=== PATIENT | male | born 1950 | race Caucasian/White ===

== ENCOUNTER 2018-02-07 17:47 | Emergency (ER) | payer MEDICAID, MEDICARE | END 2018-02-07 20:08 | disposition home or self-care (01) | LOC: FTE 17:47 | DX: M79.675 Pain in left toe(s) (principal); E11.9 Type 2 diabetes mellitus without complications; I10 Essential (primary) hypertension | CPT/HCPCS: 73660; 99283-25 ==

== ENCOUNTER 2018-05-07 19:54 | Inpatient (IN) | payer MEDICAID, MEDICARE ==
[2018-05-07 22:45] LABS: ADD MAN DIFF? NO
[2018-05-07 22:46] LABS: ABNORMAL IP MESSAGE 1; BASOPHILS % 0.2 % (0.0-2.0); EOSINOPHILS # 0.1 10^3/ul (0.0-0.5); EOSINOPHILS % 0.2 % (0.0-7.0); HEMATOCRIT 42.4 % (42.0-52.0); HEMOGLOBIN 14.9 g/dl (14.0-18.0); LYMPHOCYTES # 1.7 10^3/ul (0.8-2.9); LYMPHOCYTES % 6.7 % (15.0-51.0); MEAN CORPUSCULAR HEMOGLOBIN 32.5 pg (29.0-33.0); MEAN CORPUSCULAR HGB CONC 35.1 g/dl (32.0-37.0); MEAN CORPUSCULAR VOLUME 92.4 fl (82.0-101.0); MEAN PLATELET VOLUME 9.9 fl (7.4-10.4); MONOCYTE # 1.9 10^3/ul (0.3-0.9); MONOCYTES % 7.5 % (0.0-11.0); NEUTROPHIL # 21.1 10^3/ul (1.6-7.5); NEUTROPHILS % 84.5 % (39.0-77.0); PLATELET COUNT 284 10^3/UL (140-415); POSITIVE DIFF @See below; RED BLOOD COUNT 4.59 10^6/ul (4.70-6.10); RED CELL DISTRIBUTION WIDTH 13.2 % (11.5-14.5)
[2018-05-07 22:53] LABS: ALANINE AMINOTRANSFERASE 16 IU/L (13-69); ALBUMIN 4.2 g/dl (3.3-4.9); ALBUMIN/GLOBULIN RATIO 1.23; ALKALINE PHOSPHATASE 132 IU/L (42-121); ANION GAP 17 (8-16); ASPARTATE AMINO TRANSFERASE 15 IU/L (15-46); BILIRUBIN,INDIRECT 0.9 mg/dl (0-1.1); BILIRUBIN,TOTAL 0.9 mg/dl (0.2-1.3); BLOOD UREA NITROGEN 33 mg/dl (7-20); CALCIUM 10.1 mg/dl (8.4-10.2); CARBON DIOXIDE 27 mmol/L (21-31); CHLORIDE 95 mmol/L (97-110); CREATININE 1.11 mg/dl (0.61-1.24); GLUCOSE 162 mg/dl (70-220); POTASSIUM 4.7 mmol/L (3.5-5.1); SODIUM 134 mmol/L (135-144); TOTAL PROTEIN 7.6 g/dl (6.1-8.1)
[2018-05-07 22:55] LABS: INR 0.94; PROTIME 12.7 Sec (11.9-14.9)
[2018-05-07 22:56] LABS: PARTIAL THROMBOPLASTIN TIME 30.3 Sec (25.0-35.0)
[2018-05-07 23:04] LABS: TROPONIN-I < 0.010 ng/ml (0.000-0.120)
[2018-05-07 23:23] LABS: AMMONIA < 9 umol/l (9-30); LACTIC ACID 2.5 mmol/L (0.5-2.0)
[2018-05-07 23:33] LABS: URINE BLOOD (Dip) POC Negative (NEGATIVE); URINE GLUCOSE (Dip) POC Negative (NEGATIVE); URINE KETONES (Dip) POC 1+ (NEGATIVE); URINE LEUKOCYTE EST (Dip) POC 3+ (NEGATIVE); URINE NITRITE (Dip) POC Negative (NEGATIVE); URINE TOTAL PROTEIN POC 1+ (NEGATIVE)
[2018-05-07 23:33] LABS: URINE PH (Dip) POC 5.5 (5.0-8.5)
[2018-05-07] MEDS: PIPER-TAZO 3.375 GM IV (PMX) 100 ML IVPB (23:50)
[2018-05-07] MEDS: SODIUM CHLORIDE 0.9% 1L BAG IV* (23:53)
[2018-05-08] MEDS ORDERED: GLUCAGON 1 MG INJ IM (05:30)
[2018-05-08] MEDS ORDERED: DEXTROSE 50% 50 ML SYRINGE IV ×2 (05:30)
[2018-05-08] MEDS ORDERED: GLUCOSE GEL 15 GRAM TUBE BUCCAL (05:30)
[2018-05-08] MEDS ORDERED: GLUCOSE GEL 15 GRAM TUBE PO ×2 (05:30)
[2018-05-08 05:54] LABS: ADD MAN DIFF? NO
[2018-05-08 05:56] LABS: WHITE BLOOD COUNT 18.7 10^3/ul (4.8-10.8)
[2018-05-08 05:56] LABS: BASOPHILS % 0.2 % (0.0-2.0); EOSINOPHILS # 0.1 10^3/ul (0.0-0.5); EOSINOPHILS % 0.5 % (0.0-7.0); HEMATOCRIT 38.7 % (42.0-52.0); HEMOGLOBIN 13.6 g/dl (14.0-18.0); LYMPHOCYTES # 2.7 10^3/ul (0.8-2.9); LYMPHOCYTES % 14.2 % (15.0-51.0); MEAN CORPUSCULAR HEMOGLOBIN 32.1 pg (29.0-33.0); MEAN CORPUSCULAR HGB CONC 35.1 g/dl (32.0-37.0); MEAN CORPUSCULAR VOLUME 91.3 fl (82.0-101.0); MEAN PLATELET VOLUME 9.5 fl (7.4-10.4); MONOCYTE # 1.4 10^3/ul (0.3-0.9); MONOCYTES % 7.6 % (0.0-11.0); NEUTROPHIL # 14.4 10^3/ul (1.6-7.5); NEUTROPHILS % 76.8 % (39.0-77.0); PLATELET COUNT 231 10^3/UL (140-415); RED BLOOD COUNT 4.24 10^6/ul (4.70-6.10); RED CELL DISTRIBUTION WIDTH 13.2 % (11.5-14.5)
[2018-05-08 06:22] LABS: LACTIC ACID 0.7 mmol/L (0.5-2.0)
[2018-05-08 06:35] LABS: ANION GAP 12 (8-16); BLOOD UREA NITROGEN 24 mg/dl (7-20); CALCIUM 9.3 mg/dl (8.4-10.2); CARBON DIOXIDE 27 mmol/L (21-31); CHLORIDE 101 mmol/L (97-110); CREATININE 0.77 mg/dl (0.61-1.24); GLUCOSE 113 mg/dl (70-220); MAGNESIUM 1.5 mg/dl (1.7-2.5); PHOSPHORUS 3.3 mg/dl (2.5-4.9); POTASSIUM 3.5 mmol/L (3.5-5.1); SODIUM 136 mmol/L (135-144)
[2018-05-08 07:28] LABS: HEMOGLOBIN A1C 6.2 % (0-5.9)
[2018-05-08] MEDS: INSULIN ASPART [NOVOLOG] 3 ML PEN SC ×4 (07:56→21:00)
[2018-05-08] MEDS: CLOPIDOGREL 75 MG TAB PO (08:11)
[2018-05-08] MEDS: LEVETIRACETAM (100 MG/ML) 5ML CUP PO ×2 (08:11→21:06)
[2018-05-08] MEDS: CEFTRIAXONE 1 GM/50 ML (PMX) 50 ML IVPB (08:11)
[2018-05-08] MEDS ORDERED: NON-FORMULARY/PATIENT OWN MED (Clopidogrel Bisulfate* 75 MG) PO (09:00)
[2018-05-08] MEDS ORDERED: METFORMIN HCL PO (09:00)
[2018-05-08] MEDS ORDERED: [UNRECOGNIZED DRUG - OTHER] PO (09:00)
[2018-05-08] MEDS ORDERED: LINAGLIPTIN PO (09:00)
[2018-05-08] MEDS: LABETALOL 200 MG TAB PO ×2 (10:06→21:06)
[2018-05-08] MEDS: ACCU-CHEK XX ×3 (10:07→20:00)
[2018-05-08] MEDS: MAGNESIUM SULFATE 2 GM/50 ML 50 ML IVPB (18:07)
[2018-05-08] MEDS: TAMSULOSIN (SR) 0.4 MG CAP PO (21:06)
[2018-05-08] MEDS: ATORVASTATIN 80 MG TAB PO (21:06)
[2018-05-09] MEDS: ACCU-CHEK XX ×4 (02:00→20:00)
[2018-05-09] MEDS: INSULIN ASPART [NOVOLOG] 3 ML PEN SC ×4 (07:44→20:05)
[2018-05-09] MEDS: metFORMIN 500 MG TAB PO ×2 (08:29→17:27)
[2018-05-09] MEDS: CLOPIDOGREL 75 MG TAB PO (08:30)
[2018-05-09] MEDS: LEVETIRACETAM (100 MG/ML) 5ML CUP PO ×2 (08:30→19:59)
[2018-05-09] MEDS: LABETALOL 200 MG TAB PO ×2 (08:32→20:00)
[2018-05-09] MEDS: CEFTRIAXONE 1 GM/50 ML (PMX) 50 ML IVPB (08:32)
[2018-05-09] MEDS ORDERED: hydrALAzine 20 MG INJ IV (12:30)
[2018-05-09] MEDS: AMLODIPINE 5 MG TAB PO ×2 (12:35→20:00)
[2018-05-09] MEDS: ATORVASTATIN 80 MG TAB PO (19:59)
[2018-05-09] MEDS: TAMSULOSIN (SR) 0.4 MG CAP PO (20:00)
[2018-05-10] MEDS: ACCU-CHEK XX (02:00)
[2018-05-10] MEDS: INSULIN ASPART [NOVOLOG] 3 ML PEN SC ×4 (08:00→21:00)
[2018-05-10] MEDS: AMLODIPINE 5 MG TAB PO ×2 (08:22→21:36)
[2018-05-10] MEDS: metFORMIN 500 MG TAB PO ×2 (08:22→17:29)
[2018-05-10] MEDS: CLOPIDOGREL 75 MG TAB PO (08:22)
[2018-05-10] MEDS: CEFTRIAXONE 1 GM/50 ML (PMX) 50 ML IVPB (12:25)
[2018-05-10] MEDS: LEVETIRACETAM (100 MG/ML) 5ML CUP PO ×2 (12:26→21:37)
[2018-05-10] MEDS: LABETALOL 200 MG TAB PO ×2 (12:26→21:37)
[2018-05-10] MEDS: QUETIAPINE 25 MG TAB PO ×2 (12:26→21:36)
[2018-05-10 18:13] LABS: MAGNESIUM 1.6 mg/dl (1.7-2.5)
[2018-05-10] MEDS: ATORVASTATIN 80 MG TAB PO (21:36)
[2018-05-10] MEDS: TAMSULOSIN (SR) 0.4 MG CAP PO (21:37)
[2018-05-10] MEDS: MAGNESIUM SULFATE 2 GM/50 ML 50 ML IVPB (23:42)
[2018-05-11] MEDS: ACCU-CHEK XX (01:58)
[2018-05-11 07:36] LABS: ADD MAN DIFF? NO
[2018-05-11 07:38] LABS: BASOPHILS % 0.4 % (0.0-2.0); EOSINOPHILS # 0.2 10^3/ul (0.0-0.5); EOSINOPHILS % 2.2 % (0.0-7.0); HEMATOCRIT 40.3 % (42.0-52.0); LYMPHOCYTES # 2.6 10^3/ul (0.8-2.9); LYMPHOCYTES % 32.6 % (15.0-51.0); MEAN CORPUSCULAR HGB CONC 34.7 g/dl (32.0-37.0); MEAN PLATELET VOLUME 9.5 fl (7.4-10.4); MONOCYTES % 12.7 % (0.0-11.0); NEUTROPHIL # 4.2 10^3/ul (1.6-7.5); NEUTROPHILS % 51.7 % (39.0-77.0); PLATELET COUNT 305 10^3/UL (140-415); RED BLOOD COUNT 4.38 10^6/ul (4.70-6.10); RED CELL DISTRIBUTION WIDTH 13.1 % (11.5-14.5)
[2018-05-11] MEDS: INSULIN ASPART [NOVOLOG] 3 ML PEN SC ×4 (08:00→21:00)
[2018-05-11 08:02] LABS: ANION GAP 13 (8-16); BLOOD UREA NITROGEN 15 mg/dl (7-20); CALCIUM 9.4 mg/dl (8.4-10.2); CARBON DIOXIDE 27 mmol/L (21-31); CHLORIDE 104 mmol/L (97-110); GLUCOSE 128 mg/dl (70-220); POTASSIUM 3.4 mmol/L (3.5-5.1); SODIUM 141 mmol/L (135-144)
[2018-05-11] MEDS: QUETIAPINE 25 MG TAB PO ×2 (09:00→21:16)
[2018-05-11] MEDS: CEFTRIAXONE 1 GM/50 ML (PMX) 50 ML IVPB (09:15)
[2018-05-11] MEDS: LABETALOL 200 MG TAB PO ×2 (11:59→21:16)
[2018-05-11] MEDS: metFORMIN 500 MG TAB PO ×2 (11:59→17:23)
[2018-05-11] MEDS: AMLODIPINE 5 MG TAB PO ×2 (11:59→21:16)
[2018-05-11] MEDS: LEVETIRACETAM (100 MG/ML) 5ML CUP PO ×2 (12:00→21:15)
[2018-05-11] MEDS: CLOPIDOGREL 75 MG TAB PO (12:00)
[2018-05-11] MEDS: ATORVASTATIN 80 MG TAB PO (21:15)
[2018-05-11] MEDS: TAMSULOSIN (SR) 0.4 MG CAP PO (21:16)
[2018-05-11] MEDS: ACETAMINOPHEN 325 MG TAB PO (23:06)
[2018-05-11] MEDS: POTASSIUM CHLORIDE 20 MEQ POWDER FOR ORAL SOLN PO (23:15)
[2018-05-12] MEDS: LORAZEPAM 2 MG INJ IV ×3 (00:39→23:06)
[2018-05-12] MEDS: ACCU-CHEK XX (02:00)
[2018-05-12] MEDS: INSULIN ASPART [NOVOLOG] 3 ML PEN SC ×4 (07:53→21:00)
[2018-05-12] MEDS: LEVETIRACETAM (100 MG/ML) 5ML CUP PO ×2 (08:25→21:14)
[2018-05-12] MEDS: CEFTRIAXONE 1 GM/50 ML (PMX) 50 ML IVPB (08:25)
[2018-05-12] MEDS: CLOPIDOGREL 75 MG TAB PO (08:25)
[2018-05-12] MEDS: AMLODIPINE 5 MG TAB PO ×2 (08:26→21:14)
[2018-05-12] MEDS: LABETALOL 200 MG TAB PO ×2 (08:26→21:14)
[2018-05-12] MEDS: QUETIAPINE 25 MG TAB PO ×2 (08:26→21:15)
[2018-05-12 08:27] LABS: ADD MAN DIFF? NO
[2018-05-12] MEDS: metFORMIN 500 MG TAB PO ×2 (08:27→17:28)
[2018-05-12 08:31] LABS: WHITE BLOOD COUNT 11.2 10^3/ul (4.8-10.8)
[2018-05-12 08:31] LABS: BASOPHILS % 0.3 % (0.0-2.0); EOSINOPHILS # 0.3 10^3/ul (0.0-0.5); EOSINOPHILS % 2.3 % (0.0-7.0); HEMATOCRIT 42.9 % (42.0-52.0); HEMOGLOBIN 14.7 g/dl (14.0-18.0); LYMPHOCYTES # 3.2 10^3/ul (0.8-2.9); LYMPHOCYTES % 28.3 % (15.0-51.0); MEAN CORPUSCULAR HEMOGLOBIN 31.7 pg (29.0-33.0); MEAN CORPUSCULAR HGB CONC 34.3 g/dl (32.0-37.0); MEAN CORPUSCULAR VOLUME 92.7 fl (82.0-101.0); MEAN PLATELET VOLUME 9.3 fl (7.4-10.4); MONOCYTE # 1.1 10^3/ul (0.3-0.9); MONOCYTES % 9.5 % (0.0-11.0); NEUTROPHIL # 6.7 10^3/ul (1.6-7.5); NEUTROPHILS % 59.2 % (39.0-77.0); PLATELET COUNT 302 10^3/UL (140-415); RED BLOOD COUNT 4.63 10^6/ul (4.70-6.10); RED CELL DISTRIBUTION WIDTH 13.1 % (11.5-14.5)
[2018-05-12 08:51] LABS: ANION GAP 15 (8-16); BLOOD UREA NITROGEN 15 mg/dl (7-20); CALCIUM 9.7 mg/dl (8.4-10.2); CARBON DIOXIDE 28 mmol/L (21-31); CHLORIDE 105 mmol/L (97-110); CREATININE 0.72 mg/dl (0.61-1.24); GLUCOSE 139 mg/dl (70-220); SODIUM 144 mmol/L (135-144)
[2018-05-12] MEDS: TAMSULOSIN (SR) 0.4 MG CAP PO (21:14)
[2018-05-12] MEDS: ATORVASTATIN 80 MG TAB PO (21:14)
[2018-05-13] MEDS: ACCU-CHEK XX (02:00)
[2018-05-13] MEDS: INSULIN ASPART [NOVOLOG] 3 ML PEN SC ×4 (08:00→20:47)
[2018-05-13] MEDS: CEFTRIAXONE 1 GM/50 ML (PMX) 50 ML IVPB (08:18)
[2018-05-13] MEDS: AMLODIPINE 5 MG TAB PO ×2 (08:20→20:44)
[2018-05-13] MEDS: LEVETIRACETAM (100 MG/ML) 5ML CUP PO ×2 (08:20→20:44)
[2018-05-13] MEDS: QUETIAPINE 25 MG TAB PO ×2 (08:21→20:44)
[2018-05-13] MEDS: CLOPIDOGREL 75 MG TAB PO (08:22)
[2018-05-13] MEDS: metFORMIN 500 MG TAB PO ×2 (08:27→17:21)
[2018-05-13] MEDS: LABETALOL 200 MG TAB PO ×2 (08:35→20:44)
[2018-05-13] MEDS: ATORVASTATIN 80 MG TAB PO (20:44)
[2018-05-13] MEDS: TAMSULOSIN (SR) 0.4 MG CAP PO (20:44)
[2018-05-14] MEDS: ACCU-CHEK XX (02:00)
[2018-05-14 06:32] LABS: ADD MAN DIFF? NO
[2018-05-14 06:42] LABS: WHITE BLOOD COUNT 10.6 10^3/ul (4.8-10.8)
[2018-05-14 06:42] LABS: BASOPHILS % 0.3 % (0.0-2.0); EOSINOPHILS # 0.3 10^3/ul (0.0-0.5); EOSINOPHILS % 3.2 % (0.0-7.0); HEMATOCRIT 41.5 % (42.0-52.0); HEMOGLOBIN 14.2 g/dl (14.0-18.0); LYMPHOCYTES # 3.3 10^3/ul (0.8-2.9); LYMPHOCYTES % 31.1 % (15.0-51.0); MEAN CORPUSCULAR HEMOGLOBIN 31.2 pg (29.0-33.0); MEAN CORPUSCULAR HGB CONC 34.2 g/dl (32.0-37.0); MEAN CORPUSCULAR VOLUME 91.2 fl (82.0-101.0); MEAN PLATELET VOLUME 9.5 fl (7.4-10.4); MONOCYTE # 0.8 10^3/ul (0.3-0.9); MONOCYTES % 7.7 % (0.0-11.0); NEUTROPHIL # 6.1 10^3/ul (1.6-7.5); NEUTROPHILS % 57.4 % (39.0-77.0); PLATELET COUNT 286 10^3/UL (140-415); RED BLOOD COUNT 4.55 10^6/ul (4.70-6.10); RED CELL DISTRIBUTION WIDTH 13.2 % (11.5-14.5)
[2018-05-14 06:55] LABS: ANION GAP 15 (8-16); BLOOD UREA NITROGEN 14 mg/dl (7-20); CALCIUM 9.5 mg/dl (8.4-10.2); CARBON DIOXIDE 25 mmol/L (21-31); CHLORIDE 108 mmol/L (97-110); CREATININE 0.66 mg/dl (0.61-1.24); GLUCOSE 123 mg/dl (70-220); POTASSIUM 3.6 mmol/L (3.5-5.1); SODIUM 144 mmol/L (135-144)
[2018-05-14] MEDS: INSULIN ASPART [NOVOLOG] 3 ML PEN SC ×4 (08:00→20:57)
[2018-05-14] MEDS: QUETIAPINE 25 MG TAB PO ×2 (08:32→21:00)
[2018-05-14] MEDS: CLOPIDOGREL 75 MG TAB PO (08:32)
[2018-05-14] MEDS: metFORMIN 500 MG TAB PO ×2 (08:32→17:21)
[2018-05-14] MEDS: LEVETIRACETAM (100 MG/ML) 5ML CUP PO ×2 (08:33→20:59)
[2018-05-14] MEDS: LABETALOL 200 MG TAB PO ×2 (08:33→20:59)
[2018-05-14] MEDS: AMLODIPINE 5 MG TAB PO ×2 (08:33→21:00)
[2018-05-14] MEDS: CEFTRIAXONE 1 GM/50 ML (PMX) 50 ML IVPB (08:33)
[2018-05-14] MEDS: ATORVASTATIN 80 MG TAB PO (20:59)
[2018-05-14] MEDS: TAMSULOSIN (SR) 0.4 MG CAP PO (20:59)
[2018-05-15] MEDS: ACCU-CHEK XX (02:13)
[2018-05-15] MEDS: INSULIN ASPART [NOVOLOG] 3 ML PEN SC ×4 (08:00→20:54)
[2018-05-15] MEDS: metFORMIN 500 MG TAB PO ×2 (08:29→17:13)
[2018-05-15] MEDS: LEVETIRACETAM (100 MG/ML) 5ML CUP PO ×2 (08:30→20:52)
[2018-05-15] MEDS: QUETIAPINE 25 MG TAB PO ×2 (08:30→20:53)
[2018-05-15] MEDS: CLOPIDOGREL 75 MG TAB PO (08:31)
[2018-05-15] MEDS: LABETALOL 200 MG TAB PO ×2 (08:31→20:53)
[2018-05-15] MEDS: LORAZEPAM 2 MG INJ IV (08:32)
[2018-05-15] MEDS: AMLODIPINE 5 MG TAB PO ×2 (08:32→20:53)
[2018-05-15] MEDS: TAMSULOSIN (SR) 0.4 MG CAP PO (20:52)
[2018-05-15] MEDS: ATORVASTATIN 80 MG TAB PO (20:53)
== END 2018-05-15 22:00 | DRG 871 ==
LOC: 5EC 05-10 06:58 → E/R 19:54 → 6WM 05-08 00:10
DX: A41.9 Sepsis, unspecified organism (principal); G93.41 Metabolic encephalopathy; N39.0 Urinary tract infection, site not specified; Z86.73 Personal history of transient ischemic attack (TIA), and cerebral infarction without residual deficits; E11.9 Type 2 diabetes mellitus without complications; I10 Essential (primary) hypertension; G40.909 Epilepsy, unspecified, not intractable, without status epilepticus; E78.5 Hyperlipidemia, unspecified; F29 Unspecified psychosis not due to a substance or known physiological condition; N40.0 Benign prostatic hyperplasia without lower urinary tract symptoms; E86.0 Dehydration
CPT/HCPCS: 36415; 70450; 71045; 80048; 80053; 81003; 82140; 82962; 83036; 83605; 83735; 84100; 84484; 85025; 85610; 85730; 87040; 87086; 92526; 92610; 93005; 96374; 97110; 97116; 97161; 97530; 99291-25

== ENCOUNTER 2018-05-15 22:06 | Inpatient (IN) | payer MEDICARE, MEDICAID ==
[2018-05-15] MEDS ORDERED: BISACODYL 10 MG SUPP PR (23:00)
[2018-05-15] MEDS ORDERED: LACTULOSE 30ML CUP PO (23:00)
[2018-05-15] MEDS ORDERED: MAGNESIUM HYDROXIDE 30ML CUP PO (23:00)
[2018-05-15] MEDS ORDERED: DEXTROSE 50% 50 ML SYRINGE IV ×2 (23:45)
[2018-05-15] MEDS ORDERED: GLUCOSE GEL 15 GRAM TUBE BUCCAL (23:45)
[2018-05-15] MEDS ORDERED: hydrALAzine 20 MG INJ IV (23:45)
[2018-05-15] MEDS ORDERED: GLUCOSE GEL 15 GRAM TUBE PO ×2 (23:45)
[2018-05-15] MEDS ORDERED: GLUCAGON 1 MG INJ IM (23:45)
[2018-05-15] MEDS ORDERED: ACETAMINOPHEN 325 MG TAB PO (23:45)
[2018-05-16] MEDS: ACCUCHECK AT 2AM (Patients on SS coverage) XX (02:00)
[2018-05-16 06:33] LABS: ADD MAN DIFF? NO
[2018-05-16 06:43] LABS: WHITE BLOOD COUNT 8.9 10^3/ul (4.8-10.8)
[2018-05-16 06:43] LABS: BASOPHILS % 0.3 % (0.0-2.0); EOSINOPHILS # 0.2 10^3/ul (0.0-0.5); EOSINOPHILS % 2.6 % (0.0-7.0); HEMATOCRIT 41.2 % (42.0-52.0); HEMOGLOBIN 14.1 g/dl (14.0-18.0); MEAN CORPUSCULAR HEMOGLOBIN 31.3 pg (29.0-33.0); MEAN CORPUSCULAR HGB CONC 34.2 g/dl (32.0-37.0); MEAN CORPUSCULAR VOLUME 91.4 fl (82.0-101.0); MEAN PLATELET VOLUME 9.3 fl (7.4-10.4); MONOCYTE # 0.7 10^3/ul (0.3-0.9); MONOCYTES % 7.7 % (0.0-11.0); NEUTROPHIL # 4.9 10^3/ul (1.6-7.5); NEUTROPHILS % 55.2 % (39.0-77.0); PLATELET COUNT 290 10^3/UL (140-415); RED BLOOD COUNT 4.51 10^6/ul (4.70-6.10); RED CELL DISTRIBUTION WIDTH 13.2 % (11.5-14.5)
[2018-05-16 07:01] LABS: ALANINE AMINOTRANSFERASE 21 IU/L (13-69); ALBUMIN 3.5 g/dl (3.3-4.9); ALBUMIN/GLOBULIN RATIO 1.16; ALKALINE PHOSPHATASE 103 IU/L (42-121); ANION GAP 13 (8-16); ASPARTATE AMINO TRANSFERASE 16 IU/L (15-46); BILIRUBIN,INDIRECT 0.7 mg/dl (0-1.1); BILIRUBIN,TOTAL 0.7 mg/dl (0.2-1.3); BLOOD UREA NITROGEN 18 mg/dl (7-20); CALCIUM 9.6 mg/dl (8.4-10.2); CARBON DIOXIDE 27 mmol/L (21-31); CHLORIDE 105 mmol/L (97-110); CREATININE 0.65 mg/dl (0.61-1.24); GLUCOSE 118 mg/dl (70-220); POTASSIUM 3.9 mmol/L (3.5-5.1); SODIUM 141 mmol/L (135-144); TOTAL PROTEIN 6.5 g/dl (6.1-8.1)
[2018-05-16] MEDS: Insulin NOVOLOG SS MILD Algorithm (SS with meals and bedtime) SC ×4 (07:35→21:00)
[2018-05-16] MEDS: LEVETIRACETAM (100 MG/ML) 5ML CUP PO ×2 (08:38→20:47)
[2018-05-16] MEDS: metFORMIN 500 MG TAB PO ×2 (08:38→17:16)
[2018-05-16] MEDS: DOCUSATE SODIUM 100 MG CAP PO ×2 (08:38→20:49)
[2018-05-16] MEDS: LABETALOL 200 MG TAB PO ×2 (08:40→20:48)
[2018-05-16] MEDS: CLOPIDOGREL 75 MG TAB PO (08:40)
[2018-05-16] MEDS: QUETIAPINE 25 MG TAB PO ×2 (08:40→20:48)
[2018-05-16] MEDS: AMLODIPINE 5 MG TAB PO ×2 (08:40→20:48)
[2018-05-16] MEDS: LORAZEPAM 2 MG INJ IV (13:32)
[2018-05-16 14:15] LABS: ADD UMIC YES; UR ASCORBIC ACID NEGATIVE (NEGATIVE); UR BILIRUBIN (Dip) NEGATIVE (NEGATIVE); UR BLOOD (Dip) NEGATIVE (NEGATIVE); UR CALCIUM OXALATE CRYSTAL FEW /HPF (NONE SEEN); UR CLARITY CLEAR (CLEAR); UR COLOR YELLOW (YELLOW); UR GLUCOSE (Dip) NEGATIVE (NEGATIVE); UR KETONES (Dip) NEGATIVE (NEGATIVE); UR LEUKOCYTE ESTERASE (Dip) TRACE Leu/ul (NEGATIVE); UR MUCUS FEW /HPF (NONE SEEN); UR NITRITE (Dip) NEGATIVE (NEGATIVE); UR RBC 2 /HPF (0-5); UR SPECIFIC GRAVITY (Dip) 1.018 (1.003-1.030); UR TOTAL PROTEIN (Dip) NEGATIVE (NEGATIVE); UR UROBILINOGEN (Dip) NEGATIVE (NEGATIVE); UR WBC 17 /HPF (0-5)
[2018-05-16] MEDS: ATORVASTATIN 80 MG TAB PO (20:48)
[2018-05-16] MEDS: TAMSULOSIN (SR) 0.4 MG CAP PO (20:48)
[2018-05-16] MEDS: SENNA TAB PO (20:49)
[2018-05-17] MEDS: ACCUCHECK AT 2AM (Patients on SS coverage) XX (02:00)
[2018-05-17] MEDS: Insulin NOVOLOG SS MILD Algorithm (SS with meals and bedtime) SC ×4 (07:35→20:06)
[2018-05-17] MEDS: metFORMIN 500 MG TAB PO ×2 (07:36→17:26)
[2018-05-17] MEDS: DOCUSATE SODIUM 100 MG CAP PO ×2 (08:29→20:06)
[2018-05-17] MEDS: AMLODIPINE 5 MG TAB PO ×2 (08:29→20:06)
[2018-05-17] MEDS: LABETALOL 200 MG TAB PO ×2 (08:29→20:06)
[2018-05-17] MEDS: LEVETIRACETAM (100 MG/ML) 5ML CUP PO ×2 (08:29→20:05)
[2018-05-17] MEDS: QUETIAPINE 25 MG TAB PO ×2 (08:29→20:06)
[2018-05-17] MEDS: CLOPIDOGREL 75 MG TAB PO (08:30)
[2018-05-17] MEDS: TAMSULOSIN (SR) 0.4 MG CAP PO (20:05)
[2018-05-17] MEDS: ATORVASTATIN 80 MG TAB PO (20:06)
[2018-05-17] MEDS: SENNA TAB PO (20:06)
[2018-05-18] MEDS: LORAZEPAM 2 MG INJ IV ×2 (01:17→19:11)
[2018-05-18] MEDS: ACCUCHECK AT 2AM (Patients on SS coverage) XX (02:00)
[2018-05-18] MEDS: Insulin NOVOLOG SS MILD Algorithm (SS with meals and bedtime) SC ×4 (07:35→20:26)
[2018-05-18] MEDS: DOCUSATE SODIUM 100 MG CAP PO ×2 (09:24→20:27)
[2018-05-18] MEDS: metFORMIN 500 MG TAB PO ×2 (09:24→17:35)
[2018-05-18] MEDS: LEVETIRACETAM (100 MG/ML) 5ML CUP PO ×2 (09:24→20:26)
[2018-05-18] MEDS: LABETALOL 200 MG TAB PO ×2 (09:24→20:26)
[2018-05-18] MEDS: CLOPIDOGREL 75 MG TAB PO (09:25)
[2018-05-18] MEDS: QUETIAPINE 25 MG TAB PO ×2 (09:25→20:26)
[2018-05-18] MEDS: AMLODIPINE 5 MG TAB PO ×2 (09:25→20:26)
[2018-05-18 17:30] LABS: ADD MAN DIFF? NO
[2018-05-18 17:33] LABS: BASOPHILS % 0.4 % (0.0-2.0); EOSINOPHILS # 0.2 10^3/ul (0.0-0.5); EOSINOPHILS % 1.9 % (0.0-7.0); HEMATOCRIT 40.8 % (42.0-52.0); HEMOGLOBIN 13.9 g/dl (14.0-18.0); LYMPHOCYTES # 2.7 10^3/ul (0.8-2.9); LYMPHOCYTES % 23.9 % (15.0-51.0); MEAN CORPUSCULAR HEMOGLOBIN 31.9 pg (29.0-33.0); MEAN CORPUSCULAR HGB CONC 34.1 g/dl (32.0-37.0); MEAN CORPUSCULAR VOLUME 93.6 fl (82.0-101.0); MONOCYTE # 0.8 10^3/ul (0.3-0.9); MONOCYTES % 6.7 % (0.0-11.0); NEUTROPHIL # 7.6 10^3/ul (1.6-7.5); NEUTROPHILS % 66.8 % (39.0-77.0); PLATELET COUNT 307 10^3/UL (140-415); RED BLOOD COUNT 4.36 10^6/ul (4.70-6.10); RED CELL DISTRIBUTION WIDTH 13.2 % (11.5-14.5)
[2018-05-18 17:33] LABS: WHITE BLOOD COUNT 11.3 10^3/ul (4.8-10.8)
[2018-05-18 17:52] LABS: ANION GAP 15 (8-16); BLOOD UREA NITROGEN 19 mg/dl (7-20); CALCIUM 9.5 mg/dl (8.4-10.2); CARBON DIOXIDE 24 mmol/L (21-31); CHLORIDE 102 mmol/L (97-110); CREATININE 0.79 mg/dl (0.61-1.24); GLUCOSE 141 mg/dl (70-220); POTASSIUM 4.2 mmol/L (3.5-5.1); SODIUM 137 mmol/L (135-144)
[2018-05-18] MEDS: ATORVASTATIN 80 MG TAB PO (20:26)
[2018-05-18] MEDS: TAMSULOSIN (SR) 0.4 MG CAP PO (20:26)
[2018-05-19] MEDS: ACCUCHECK AT 2AM (Patients on SS coverage) XX (02:00)
[2018-05-19] MEDS: Insulin NOVOLOG SS MILD Algorithm (SS with meals and bedtime) SC ×4 (07:35→21:00)
[2018-05-19] MEDS: metFORMIN 500 MG TAB PO ×2 (07:55→17:28)
[2018-05-19] MEDS: QUETIAPINE 25 MG TAB PO ×2 (08:49→20:55)
[2018-05-19] MEDS: LEVETIRACETAM (100 MG/ML) 5ML CUP PO ×2 (08:49→20:55)
[2018-05-19] MEDS: CLOPIDOGREL 75 MG TAB PO (08:49)
[2018-05-19] MEDS: DOCUSATE SODIUM 100 MG CAP PO ×2 (08:49→20:54)
[2018-05-19] MEDS: LABETALOL 200 MG TAB PO ×2 (08:50→20:55)
[2018-05-19] MEDS: AMLODIPINE 5 MG TAB PO ×2 (08:50→20:55)
[2018-05-19 11:02] LABS: ADD MAN DIFF? NO
[2018-05-19 11:06] LABS: WHITE BLOOD COUNT 9.7 10^3/ul (4.8-10.8)
[2018-05-19 11:06] LABS: BASOPHILS % 0.3 % (0.0-2.0); EOSINOPHILS # 0.2 10^3/ul (0.0-0.5); EOSINOPHILS % 2.1 % (0.0-7.0); HEMATOCRIT 41.4 % (42.0-52.0); HEMOGLOBIN 14.1 g/dl (14.0-18.0); LYMPHOCYTES # 2.5 10^3/ul (0.8-2.9); LYMPHOCYTES % 25.7 % (15.0-51.0); MEAN CORPUSCULAR HEMOGLOBIN 31.7 pg (29.0-33.0); MEAN CORPUSCULAR HGB CONC 34.1 g/dl (32.0-37.0); MEAN PLATELET VOLUME 9.7 fl (7.4-10.4); MONOCYTE # 0.7 10^3/ul (0.3-0.9); MONOCYTES % 6.8 % (0.0-11.0); NEUTROPHIL # 6.3 10^3/ul (1.6-7.5); NEUTROPHILS % 64.9 % (39.0-77.0); PLATELET COUNT 276 10^3/UL (140-415); RED BLOOD COUNT 4.45 10^6/ul (4.70-6.10); RED CELL DISTRIBUTION WIDTH 13.1 % (11.5-14.5)
[2018-05-19] MEDS: TAMSULOSIN (SR) 0.4 MG CAP PO (20:55)
[2018-05-19] MEDS: ATORVASTATIN 80 MG TAB PO (20:55)
[2018-05-20] MEDS: ACCUCHECK AT 2AM (Patients on SS coverage) XX (02:00)
[2018-05-20] MEDS: Insulin NOVOLOG SS MILD Algorithm (SS with meals and bedtime) SC ×4 (07:35→20:10)
[2018-05-20] MEDS: metFORMIN 500 MG TAB PO ×2 (07:41→17:25)
[2018-05-20] MEDS: LEVETIRACETAM (100 MG/ML) 5ML CUP PO ×2 (08:44→20:01)
[2018-05-20] MEDS: QUETIAPINE 25 MG TAB PO ×2 (08:45→20:08)
[2018-05-20] MEDS: CLOPIDOGREL 75 MG TAB PO (08:45)
[2018-05-20] MEDS: AMLODIPINE 5 MG TAB PO ×2 (08:45→20:02)
[2018-05-20] MEDS: LABETALOL 200 MG TAB PO ×2 (08:45→20:01)
[2018-05-20] MEDS: DOCUSATE SODIUM 100 MG CAP PO ×2 (08:45→20:01)
[2018-05-20] MEDS: ATORVASTATIN 80 MG TAB PO (20:01)
[2018-05-20] MEDS: TAMSULOSIN (SR) 0.4 MG CAP PO (20:01)
[2018-05-21] MEDS: ACCUCHECK AT 2AM (Patients on SS coverage) XX (02:00)
[2018-05-21] MEDS: Insulin NOVOLOG SS MILD Algorithm (SS with meals and bedtime) SC ×4 (07:35→20:56)
[2018-05-21] MEDS: metFORMIN 500 MG TAB PO ×2 (07:44→17:15)
[2018-05-21] MEDS: QUETIAPINE 25 MG TAB PO ×3 (09:05→20:42)
[2018-05-21] MEDS: LEVETIRACETAM (100 MG/ML) 5ML CUP PO ×2 (09:05→20:40)
[2018-05-21] MEDS: AMLODIPINE 5 MG TAB PO ×2 (09:06→20:43)
[2018-05-21] MEDS: LABETALOL 200 MG TAB PO ×2 (09:06→20:42)
[2018-05-21] MEDS: DOCUSATE SODIUM 100 MG CAP PO ×2 (09:06→20:41)
[2018-05-21] MEDS: CLOPIDOGREL 75 MG TAB PO (09:06)
[2018-05-21] MEDS: ATORVASTATIN 80 MG TAB PO (20:41)
[2018-05-21] MEDS: TAMSULOSIN (SR) 0.4 MG CAP PO (20:41)
[2018-05-22] MEDS: LORAZEPAM 0.5 MG TAB PO (00:17)
[2018-05-22] MEDS: ACCUCHECK AT 2AM (Patients on SS coverage) XX (02:00)
[2018-05-22] MEDS: Insulin NOVOLOG SS MILD Algorithm (SS with meals and bedtime) SC (07:35)
[2018-05-22] MEDS: metFORMIN 500 MG TAB PO (08:27)
[2018-05-22] MEDS: QUETIAPINE 25 MG TAB PO (08:29)
[2018-05-22] MEDS: LEVETIRACETAM (100 MG/ML) 5ML CUP PO (08:29)
[2018-05-22] MEDS: LABETALOL 200 MG TAB PO (08:30)
[2018-05-22] MEDS: CLOPIDOGREL 75 MG TAB PO (08:30)
[2018-05-22] MEDS: AMLODIPINE 5 MG TAB PO (08:38)
[2018-05-22] MEDS: DOCUSATE SODIUM 100 MG CAP PO (08:38)
== END 2018-05-22 12:32 | disposition home health service (06) | DRG 93 ==
LOC: VRC 22:06
PROC: F08Z1ZZ Dressing Techniques Treatment (ICD-10-PCS; principal; 2018-05-15)
PROC: F08Z0ZZ Bathing/Showering Techniques Treatment (ICD-10-PCS; 2018-05-15)
PROC: F08Z2ZZ Grooming/Personal Hygiene Treatment (ICD-10-PCS; 2018-05-15)
PROC: F07Z5ZZ Bed Mobility Treatment (ICD-10-PCS; 2018-05-15)
PROC: F07Z8ZZ Transfer Training Treatment (ICD-10-PCS; 2018-05-15)
PROC: F07Z9ZZ Gait Training/Functional Ambulation Treatment (ICD-10-PCS; 2018-05-15)
DX: G92 Toxic encephalopathy (principal); Z87.440 Personal history of urinary (tract) infections; Z86.19 Personal history of other infectious and parasitic diseases; E11.9 Type 2 diabetes mellitus without complications; G40.909 Epilepsy, unspecified, not intractable, without status epilepticus; Z86.73 Personal history of transient ischemic attack (TIA), and cerebral infarction without residual deficits; R13.10 Dysphagia, unspecified; E78.5 Hyperlipidemia, unspecified; E11.42 Type 2 diabetes mellitus with diabetic polyneuropathy; F29 Unspecified psychosis not due to a substance or known physiological condition; N40.0 Benign prostatic hyperplasia without lower urinary tract symptoms
CPT/HCPCS: 74018; 76856; 80048; 80053; 81001; 82962; 85025; 87081; 87086; 92507; 92523; 92526; 92610; 97110; 97112; 97116; 97163; 97167; 97530; 97535; 97542

== ENCOUNTER 2019-02-16 20:27 | Inpatient (IN) | payer OTHER, MEDICAID, MEDICARE ==
[2019-02-16 20:57] LABS: ADD MAN DIFF? NO
[2019-02-16 20:59] LABS: BASOPHILS % 0.3 % (0.0-2.0); EOSINOPHILS # 0.2 10^3/ul (0.0-0.5); EOSINOPHILS % 2.2 % (0.0-7.0); HEMATOCRIT 42.1 % (42.0-52.0); HEMOGLOBIN 14.3 g/dl (14.0-18.0); LYMPHOCYTES # 2.6 10^3/ul (0.8-2.9); MEAN CORPUSCULAR HEMOGLOBIN 32.3 pg (29.0-33.0); MEAN PLATELET VOLUME 9.9 fl (7.4-10.4); MONOCYTE # 0.9 10^3/ul (0.3-0.9); MONOCYTES % 8.8 % (0.0-11.0); NEUTROPHIL # 6.3 10^3/ul (1.6-7.5); NEUTROPHILS % 62.4 % (39.0-77.0); PLATELET COUNT 223 10^3/UL (140-415); RED BLOOD COUNT 4.43 10^6/ul (4.70-6.10)
[2019-02-16 20:59] LABS: WHITE BLOOD COUNT 10.1 10^3/ul (4.8-10.8)
[2019-02-16 21:12] LABS: HEMOGLOBIN A1C 5.7 % (0-5.9)
[2019-02-16 21:20] LABS: INR 0.97
[2019-02-16 21:21] LABS: ANION GAP 9 (5-13); BLOOD UREA NITROGEN 13 mg/dl (7-20); CALCIUM 9.5 mg/dl (8.4-10.2); CARBON DIOXIDE 26 mmol/L (21-31); CHLORIDE 101 mmol/L (97-110); CHOL/HDL RATIO 1.6 RATIO; CHOLESTEROL 108 mg/dl (100-200); CREATININE 0.96 mg/dl (0.61-1.24); Estimated GFR > 60 mL/min (>60); GLUCOSE 128 mg/dl (70-220); HDL CHOLESTEROL 65 mg/dl (31-75); LDL CHOLESTEROL,CALCULATED 21 mg/dl; PARTIAL THROMBOPLASTIN TIME 29.4 Sec (23.0-35.0); POTASSIUM 3.7 mmol/L (3.5-5.1); SODIUM 136 mmol/L (135-144); TRIGLYCERIDES 112 mg/dl (0-149)
[2019-02-16 21:31] LABS: TROPONIN-I < 0.012 ng/ml (0.000-0.120)
[2019-02-16 21:48] LABS: ADD UMIC YES; UR ASCORBIC ACID NEGATIVE (NEGATIVE); UR BILIRUBIN (Dip) NEGATIVE (NEGATIVE); UR BLOOD (Dip) 1+ mg/dL (NEGATIVE); UR CLARITY CLEAR (CLEAR); UR COLOR YELLOW (YELLOW); UR GLUCOSE (Dip) NEGATIVE (NEGATIVE); UR KETONES (Dip) NEGATIVE (NEGATIVE); UR LEUKOCYTE ESTERASE (Dip) NEGATIVE Leu/ul (NEGATIVE); UR NITRITE (Dip) NEGATIVE (NEGATIVE); UR RBC 2 /HPF (0-5); UR SPECIFIC GRAVITY (Dip) 1.006 (1.003-1.030); UR TOTAL PROTEIN (Dip) NEGATIVE (NEGATIVE); UR UROBILINOGEN (Dip) NEGATIVE (NEGATIVE); UR WBC 5 /HPF (0-5)
[2019-02-16 22:07] LABS: AMPHETAMINE/METHAMPHETAMINE NEGATIVE (NEGATIVE); BARBITURATES NEGATIVE (NEGATIVE); BENZODIAZEPINES NEGATIVE (NEGATIVE); CANNABINOIDS NEGATIVE (NEGATIVE); COCAINE NEGATIVE (NEGATIVE)
[2019-02-16 22:32] LABS: OPIATES NEGATIVE (NEGATIVE)
[2019-02-16] MEDS ORDERED: NACL 0.9% 3 ML SYG IV (23:30)
[2019-02-16] MEDS ORDERED: ONDANSETRON 4 MG INJ IV (23:30)
[2019-02-16] MEDS ORDERED: morphine 2 MG INJ IV (23:30)
[2019-02-17] MEDS ORDERED: DEXTROSE 50% 50 ML SYRINGE IV ×2 (06:30)
[2019-02-17] MEDS ORDERED: GLUCOSE GEL 15 GRAM TUBE BUCCAL (06:30)
[2019-02-17] MEDS ORDERED: GLUCOSE GEL 15 GRAM TUBE PO ×2 (06:30)
[2019-02-17] MEDS ORDERED: GLUCAGON 1 MG INJ IM (06:30)
[2019-02-17 07:48] LABS: ADD MAN DIFF? NO
[2019-02-17] MEDS: INSULIN ASPART [NOVOLOG] 3 ML PEN SC ×4 (07:49→20:50)
[2019-02-17 07:52] LABS: WHITE BLOOD COUNT 9.4 10^3/ul (4.8-10.8)
[2019-02-17 07:52] LABS: BASOPHILS % 0.2 % (0.0-2.0); EOSINOPHILS # 0.1 10^3/ul (0.0-0.5); EOSINOPHILS % 1.5 % (0.0-7.0); HEMATOCRIT 43.4 % (42.0-52.0); LYMPHOCYTES # 1.9 10^3/ul (0.8-2.9); LYMPHOCYTES % 20.7 % (15.0-51.0); MEAN CORPUSCULAR HGB CONC 34.6 g/dl (32.0-37.0); MEAN CORPUSCULAR VOLUME 92.5 fl (82.0-101.0); MEAN PLATELET VOLUME 10.1 fl (7.4-10.4); MONOCYTE # 0.8 10^3/ul (0.3-0.9); MONOCYTES % 8.1 % (0.0-11.0); NEUTROPHIL # 6.5 10^3/ul (1.6-7.5); NEUTROPHILS % 69.2 % (39.0-77.0); PLATELET COUNT 249 10^3/UL (140-415); RED BLOOD COUNT 4.69 10^6/ul (4.70-6.10); RED CELL DISTRIBUTION WIDTH 12.7 % (11.5-14.5)
[2019-02-17 08:25] LABS: ALANINE AMINOTRANSFERASE 12 IU/L (13-69); ALBUMIN 4.2 g/dl (3.3-4.9); ALBUMIN/GLOBULIN RATIO 1.55; ALKALINE PHOSPHATASE 92 IU/L (42-121); ANION GAP 9 (5-13); ASPARTATE AMINO TRANSFERASE 17 IU/L (15-46); BILIRUBIN,INDIRECT 0.9 mg/dl (0-1.1); BILIRUBIN,TOTAL 0.9 mg/dl (0.2-1.3); BLOOD UREA NITROGEN 11 mg/dl (7-20); CALCIUM 9.4 mg/dl (8.4-10.2); CARBON DIOXIDE 28 mmol/L (21-31); CHLORIDE 104 mmol/L (97-110); CREATININE 0.68 mg/dl (0.61-1.24); Estimated GFR > 60 mL/min (>60); GLUCOSE 140 mg/dl (70-220); POTASSIUM 3.5 mmol/L (3.5-5.1); SODIUM 141 mmol/L (135-144); TOTAL PROTEIN 6.9 g/dl (6.1-8.1)
[2019-02-17 08:45] LABS: HEMOGLOBIN A1C 5.9 % (0-5.9)
[2019-02-17] MEDS: ASPIRIN 81 MG TAB PO (08:50)
[2019-02-17] MEDS: FAMOTIDINE 20 MG INJ IV (08:50)
[2019-02-17] MEDS: ENOXAPARIN 30 MG/0.3 ML SYG SC (08:55)
[2019-02-17] MEDS: LEVETIRACETAM (100 MG/ML) 5ML CUP PO ×2 (12:35→20:48)
[2019-02-17] MEDS: LINAGLIPTIN 5 MG TABLET PO (12:36)
[2019-02-17] MEDS: QUETIAPINE 25 MG TAB PO ×2 (12:36→21:00)
[2019-02-17] MEDS: CLOPIDOGREL 75 MG TAB PO (12:36)
[2019-02-17] MEDS: LABETALOL 200 MG TAB PO ×2 (12:38→21:00)
[2019-02-17] MEDS: metFORMIN 500 MG TAB PO (17:42)
[2019-02-17] MEDS: LORAZEPAM 2 MG INJ IV (20:05)
[2019-02-17] MEDS: TAMSULOSIN (SR) 0.4 MG CAP PO (20:48)
[2019-02-17] MEDS: ATORVASTATIN 80 MG TAB PO (20:48)
[2019-02-18] MEDS: INSULIN ASPART [NOVOLOG] 3 ML PEN SC ×4 (07:48→21:00)
[2019-02-18] MEDS: metFORMIN 500 MG TAB PO ×3 (07:55→17:46)
[2019-02-18 08:00] LABS: ADD MAN DIFF? NO
[2019-02-18 08:13] LABS: BASOPHILS % 0.4 % (0.0-2.0); EOSINOPHILS # 0.2 10^3/ul (0.0-0.5); HEMATOCRIT 42.7 % (42.0-52.0); HEMOGLOBIN 14.5 g/dl (14.0-18.0); LYMPHOCYTES # 2.5 10^3/ul (0.8-2.9); LYMPHOCYTES % 27.2 % (15.0-51.0); MEAN CORPUSCULAR HEMOGLOBIN 31.9 pg (29.0-33.0); MEAN CORPUSCULAR VOLUME 93.8 fl (82.0-101.0); MEAN PLATELET VOLUME 10.4 fl (7.4-10.4); MONOCYTE # 0.9 10^3/ul (0.3-0.9); MONOCYTES % 9.4 % (0.0-11.0); NEUTROPHIL # 5.6 10^3/ul (1.6-7.5); NEUTROPHILS % 60.7 % (39.0-77.0); PLATELET COUNT 234 10^3/UL (140-415); RED BLOOD COUNT 4.55 10^6/ul (4.70-6.10); RED CELL DISTRIBUTION WIDTH 13.2 % (11.5-14.5)
[2019-02-18 08:13] LABS: WHITE BLOOD COUNT 9.2 10^3/ul (4.8-10.8)
[2019-02-18 08:18] LABS: AMMONIA 14 umol/l (9-30)
[2019-02-18] MEDS: FAMOTIDINE 20 MG INJ IV (08:30)
[2019-02-18] MEDS: ENOXAPARIN 30 MG/0.3 ML SYG SC (08:35)
[2019-02-18] MEDS: LABETALOL 200 MG TAB PO ×3 (09:00→21:53)
[2019-02-18] MEDS: LEVETIRACETAM (100 MG/ML) 5ML CUP PO ×3 (09:00→21:52)
[2019-02-18] MEDS: CLOPIDOGREL 75 MG TAB PO ×2 (09:00→12:41)
[2019-02-18] MEDS: ASPIRIN 81 MG TAB PO ×2 (09:00→12:41)
[2019-02-18] MEDS: QUETIAPINE 25 MG TAB PO ×2 (09:00→21:47)
[2019-02-18] MEDS: LINAGLIPTIN 5 MG TABLET PO (09:00)
[2019-02-18 09:57] LABS: ANION GAP 9 (5-13); BLOOD UREA NITROGEN 18 mg/dl (7-20); CALCIUM 9.3 mg/dl (8.4-10.2); CARBON DIOXIDE 25 mmol/L (21-31); CHLORIDE 106 mmol/L (97-110); CREATININE 0.81 mg/dl (0.61-1.24); Estimated GFR > 60 mL/min (>60); GLUCOSE 136 mg/dl (70-220); POTASSIUM 3.5 mmol/L (3.5-5.1); SODIUM 140 mmol/L (135-144)
[2019-02-18 15:05] LABS: THYROID STIMULATING HORMONE 0.706 MIU/L (0.465-4.680)
[2019-02-18] MEDS: DOCUSATE SODIUM 100 MG CAP PO (17:45)
[2019-02-18] MEDS: TAMSULOSIN (SR) 0.4 MG CAP PO (21:47)
[2019-02-18] MEDS: ATORVASTATIN 80 MG TAB PO (21:47)
[2019-02-18] MEDS: MELATONIN 3 MG TABLET PO (21:52)
[2019-02-18 22:03] LABS: RAPID PLASMA REAGIN NONREACTIVE (NR)
[2019-02-19] MEDS: INSULIN ASPART [NOVOLOG] 3 ML PEN SC ×4 (08:00→21:00)
[2019-02-19] MEDS: metFORMIN 500 MG TAB PO ×2 (08:37→17:15)
[2019-02-19] MEDS: QUETIAPINE 25 MG TAB PO ×2 (08:37→21:21)
[2019-02-19] MEDS: ASPIRIN 81 MG TAB PO (08:37)
[2019-02-19] MEDS: CLOPIDOGREL 75 MG TAB PO (08:37)
[2019-02-19] MEDS: LABETALOL 200 MG TAB PO ×2 (08:38→21:21)
[2019-02-19] MEDS: LINAGLIPTIN 5 MG TABLET PO (08:38)
[2019-02-19] MEDS: DOCUSATE SODIUM 100 MG CAP PO (08:38)
[2019-02-19] MEDS: FAMOTIDINE 20 MG INJ IV (08:40)
[2019-02-19] MEDS: ENOXAPARIN 30 MG/0.3 ML SYG SC (08:41)
[2019-02-19] MEDS: LEVETIRACETAM (100 MG/ML) 5ML CUP PO ×3 (08:52→21:22)
[2019-02-19] MEDS ORDERED: DOCUSATE SODIUM 100 MG CAP PO (09:00)
[2019-02-19] MEDS: LORAZEPAM 2 MG INJ IV ×2 (15:37→21:22)
[2019-02-19] MEDS: TAMSULOSIN (SR) 0.4 MG CAP PO (21:21)
[2019-02-19] MEDS: MELATONIN 3 MG TABLET PO (21:22)
[2019-02-19] MEDS: ATORVASTATIN 80 MG TAB PO (21:22)
[2019-02-20] MEDS: INSULIN ASPART [NOVOLOG] 3 ML PEN SC ×4 (08:00→20:33)
[2019-02-20] MEDS: LEVETIRACETAM (100 MG/ML) 5ML CUP PO ×2 (08:50→20:31)
[2019-02-20] MEDS: metFORMIN 500 MG TAB PO ×2 (08:51→17:10)
[2019-02-20] MEDS: FAMOTIDINE 20 MG TAB PO (08:52)
[2019-02-20] MEDS: QUETIAPINE 25 MG TAB PO ×2 (08:52→20:31)
[2019-02-20] MEDS: LINAGLIPTIN 5 MG TABLET PO (08:52)
[2019-02-20] MEDS: ENOXAPARIN 30 MG/0.3 ML SYG SC (08:52)
[2019-02-20] MEDS: CLOPIDOGREL 75 MG TAB PO (08:52)
[2019-02-20] MEDS: LABETALOL 200 MG TAB PO ×2 (08:53→20:34)
[2019-02-20] MEDS: ASPIRIN 81 MG TAB PO (08:53)
[2019-02-20] MEDS: DOCUSATE SODIUM 100 MG CAP PO (08:53)
[2019-02-20] MEDS ORDERED: LORAZEPAM 2 MG INJ IV (19:00)
[2019-02-20] MEDS: ATORVASTATIN 80 MG TAB PO (20:31)
[2019-02-20] MEDS: TAMSULOSIN (SR) 0.4 MG CAP PO (20:31)
[2019-02-20] MEDS: MELATONIN 3 MG TABLET PO (20:33)
[2019-02-21] MEDS: INSULIN ASPART [NOVOLOG] 3 ML PEN SC ×4 (08:00→20:36)
[2019-02-21] MEDS: DOCUSATE SODIUM 100 MG CAP PO (08:24)
[2019-02-21] MEDS: LEVETIRACETAM (100 MG/ML) 5ML CUP PO ×2 (08:24→20:35)
[2019-02-21] MEDS: CLOPIDOGREL 75 MG TAB PO (08:25)
[2019-02-21] MEDS: LABETALOL 200 MG TAB PO ×2 (08:25→20:36)
[2019-02-21] MEDS: metFORMIN 500 MG TAB PO ×2 (08:25→17:25)
[2019-02-21] MEDS: ASPIRIN 81 MG TAB PO (08:26)
[2019-02-21] MEDS: QUETIAPINE 25 MG TAB PO ×2 (08:26→20:35)
[2019-02-21] MEDS: FAMOTIDINE 20 MG TAB PO (08:26)
[2019-02-21] MEDS: ENOXAPARIN 30 MG/0.3 ML SYG SC (08:27)
[2019-02-21] MEDS: LINAGLIPTIN 5 MG TABLET PO (09:04)
[2019-02-21] MEDS: LORAZEPAM 2 MG INJ IV (13:11)
[2019-02-21] MEDS: ATORVASTATIN 80 MG TAB PO (20:35)
[2019-02-21] MEDS: TAMSULOSIN (SR) 0.4 MG CAP PO (20:36)
[2019-02-21] MEDS: MELATONIN 3 MG TABLET PO (20:36)
[2019-02-22] MEDS: ACETAMINOPHEN 325 MG TAB PO (02:45)
[2019-02-22] MEDS: INSULIN ASPART [NOVOLOG] 3 ML PEN SC ×4 (08:00→21:00)
[2019-02-22] MEDS: LEVETIRACETAM (100 MG/ML) 5ML CUP PO ×2 (08:30→21:03)
[2019-02-22] MEDS: metFORMIN 500 MG TAB PO ×2 (08:30→17:08)
[2019-02-22] MEDS: CLOPIDOGREL 75 MG TAB PO (08:31)
[2019-02-22] MEDS: LINAGLIPTIN 5 MG TABLET PO (08:31)
[2019-02-22] MEDS: FAMOTIDINE 20 MG TAB PO (08:31)
[2019-02-22] MEDS: ASPIRIN 81 MG TAB PO (08:31)
[2019-02-22] MEDS: DOCUSATE SODIUM 100 MG CAP PO (08:31)
[2019-02-22] MEDS: LABETALOL 200 MG TAB PO ×2 (08:31→21:03)
[2019-02-22] MEDS: QUETIAPINE 25 MG TAB PO ×2 (08:31→22:04)
[2019-02-22] MEDS: ENOXAPARIN 30 MG/0.3 ML SYG SC (08:34)
[2019-02-22] MEDS: LORAZEPAM 2 MG INJ IV (17:09)
[2019-02-22] MEDS: ATORVASTATIN 80 MG TAB PO (21:02)
[2019-02-22] MEDS: MELATONIN 3 MG TABLET PO (21:03)
[2019-02-22] MEDS: TAMSULOSIN (SR) 0.4 MG CAP PO (21:03)
[2019-02-23] MEDS: INSULIN ASPART [NOVOLOG] 3 ML PEN SC ×4 (08:00→21:00)
[2019-02-23] MEDS: DOCUSATE SODIUM 100 MG CAP PO (08:48)
[2019-02-23] MEDS: ASPIRIN 81 MG TAB PO (08:48)
[2019-02-23] MEDS: LEVETIRACETAM (100 MG/ML) 5ML CUP PO ×2 (08:48→20:59)
[2019-02-23] MEDS: metFORMIN 500 MG TAB PO ×2 (08:48→18:18)
[2019-02-23] MEDS: LINAGLIPTIN 5 MG TABLET PO (08:50)
[2019-02-23] MEDS: LABETALOL 200 MG TAB PO ×2 (08:50→20:59)
[2019-02-23] MEDS: CLOPIDOGREL 75 MG TAB PO (08:50)
[2019-02-23] MEDS: FAMOTIDINE 20 MG TAB PO (08:50)
[2019-02-23] MEDS: ENOXAPARIN 30 MG/0.3 ML SYG SC (08:51)
[2019-02-23] MEDS: TAMSULOSIN (SR) 0.4 MG CAP PO (20:58)
[2019-02-23] MEDS: MELATONIN 3 MG TABLET PO (20:59)
[2019-02-23] MEDS: QUETIAPINE 25 MG TAB PO (20:59)
[2019-02-23] MEDS: ATORVASTATIN 80 MG TAB PO (20:59)
[2019-02-24] MEDS: LINAGLIPTIN 5 MG TABLET PO (08:49)
[2019-02-24] MEDS: metFORMIN 500 MG TAB PO ×2 (08:49→17:07)
[2019-02-24] MEDS: CLOPIDOGREL 75 MG TAB PO (08:49)
[2019-02-24] MEDS: DOCUSATE SODIUM 100 MG CAP PO (08:49)
[2019-02-24] MEDS: FAMOTIDINE 20 MG TAB PO (08:49)
[2019-02-24] MEDS: ASPIRIN 81 MG TAB PO (08:49)
[2019-02-24] MEDS: LABETALOL 200 MG TAB PO ×2 (08:49→21:53)
[2019-02-24] MEDS: LEVETIRACETAM (100 MG/ML) 5ML CUP PO ×2 (08:49→21:53)
[2019-02-24] MEDS: ENOXAPARIN 30 MG/0.3 ML SYG SC (09:00)
[2019-02-24] MEDS: INSULIN ASPART [NOVOLOG] 3 ML PEN SC ×4 (09:01→21:00)
[2019-02-24] MEDS: ATORVASTATIN 80 MG TAB PO (21:53)
[2019-02-24] MEDS: TAMSULOSIN (SR) 0.4 MG CAP PO (21:53)
[2019-02-24] MEDS: MELATONIN 3 MG TABLET PO (21:53)
[2019-02-24] MEDS: QUETIAPINE 25 MG TAB PO (21:54)
[2019-02-25] MEDS: INSULIN ASPART [NOVOLOG] 3 ML PEN SC ×4 (08:00→20:58)
[2019-02-25] MEDS: metFORMIN 500 MG TAB PO ×2 (09:01→18:04)
[2019-02-25] MEDS: LINAGLIPTIN 5 MG TABLET PO (09:06)
[2019-02-25] MEDS: ASPIRIN 81 MG TAB PO (09:06)
[2019-02-25] MEDS: DOCUSATE SODIUM 100 MG CAP PO (09:06)
[2019-02-25] MEDS: CLOPIDOGREL 75 MG TAB PO (09:06)
[2019-02-25] MEDS: FAMOTIDINE 20 MG TAB PO (09:06)
[2019-02-25] MEDS: LABETALOL 200 MG TAB PO ×2 (09:06→21:06)
[2019-02-25] MEDS: LEVETIRACETAM (100 MG/ML) 5ML CUP PO ×2 (09:06→20:59)
[2019-02-25] MEDS: ENOXAPARIN 30 MG/0.3 ML SYG SC (09:07)
[2019-02-25] MEDS: QUETIAPINE 25 MG TAB PO ×2 (18:04→21:00)
[2019-02-25] MEDS: ATORVASTATIN 80 MG TAB PO (20:59)
[2019-02-25] MEDS: MELATONIN 3 MG TABLET PO (21:00)
[2019-02-25] MEDS: TAMSULOSIN (SR) 0.4 MG CAP PO (21:00)
[2019-02-25] MEDS: LORAZEPAM 2 MG INJ IV (22:34)
[2019-02-26] MEDS: LORAZEPAM 2 MG INJ IV ×2 (02:00→09:46)
[2019-02-26] MEDS: QUETIAPINE 25 MG TAB PO (02:32)
[2019-02-26 07:19] LABS: ADD MAN DIFF? NO
[2019-02-26 07:27] LABS: BASOPHILS % 0.4 % (0.0-2.0); EOSINOPHILS # 0.2 10^3/ul (0.0-0.5); HEMATOCRIT 40.6 % (42.0-52.0); HEMOGLOBIN 13.9 g/dl (14.0-18.0); LYMPHOCYTES # 2.1 10^3/ul (0.8-2.9); LYMPHOCYTES % 27.1 % (15.0-51.0); MEAN CORPUSCULAR HEMOGLOBIN 32.5 pg (29.0-33.0); MEAN CORPUSCULAR HGB CONC 34.2 g/dl (32.0-37.0); MEAN CORPUSCULAR VOLUME 94.9 fl (82.0-101.0); MEAN PLATELET VOLUME 10.1 fl (7.4-10.4); MONOCYTE # 0.7 10^3/ul (0.3-0.9); MONOCYTES % 8.7 % (0.0-11.0); NEUTROPHIL # 4.8 10^3/ul (1.6-7.5); NEUTROPHILS % 60.4 % (39.0-77.0); PLATELET COUNT 244 10^3/UL (140-415); RED BLOOD COUNT 4.28 10^6/ul (4.70-6.10); RED CELL DISTRIBUTION WIDTH 12.4 % (11.5-14.5)
[2019-02-26 07:27] LABS: WHITE BLOOD COUNT 7.9 10^3/ul (4.8-10.8)
[2019-02-26 07:45] LABS: ANION GAP 9 (5-13); BLOOD UREA NITROGEN 16 mg/dl (7-20); CALCIUM 9.6 mg/dl (8.4-10.2); CARBON DIOXIDE 25 mmol/L (21-31); CHLORIDE 107 mmol/L (97-110); CREATININE 0.69 mg/dl (0.61-1.24); Estimated GFR > 60 mL/min (>60); GLUCOSE 98 mg/dl (70-220); POTASSIUM 3.8 mmol/L (3.5-5.1); SODIUM 141 mmol/L (135-144)
[2019-02-26] MEDS: INSULIN ASPART [NOVOLOG] 3 ML PEN SC ×4 (08:00→20:10)
[2019-02-26] MEDS: LEVETIRACETAM (100 MG/ML) 5ML CUP PO ×2 (08:31→20:06)
[2019-02-26] MEDS: metFORMIN 500 MG TAB PO ×2 (08:32→17:50)
[2019-02-26] MEDS: CLOPIDOGREL 75 MG TAB PO (08:33)
[2019-02-26] MEDS: LABETALOL 200 MG TAB PO ×2 (08:33→20:07)
[2019-02-26] MEDS: ENOXAPARIN 30 MG/0.3 ML SYG SC (08:33)
[2019-02-26] MEDS: DOCUSATE SODIUM 100 MG CAP PO (08:33)
[2019-02-26] MEDS: LINAGLIPTIN 5 MG TABLET PO (08:33)
[2019-02-26] MEDS: FAMOTIDINE 20 MG TAB PO (08:33)
[2019-02-26] MEDS: ASPIRIN 81 MG TAB PO (08:34)
[2019-02-26] MEDS: TAMSULOSIN (SR) 0.4 MG CAP PO (20:06)
[2019-02-26] MEDS: ATORVASTATIN 80 MG TAB PO (20:06)
[2019-02-26] MEDS: MELATONIN 3 MG TABLET PO (20:07)
== END 2019-02-26 21:45 | DRG 69 ==
LOC: TEL 23:04 → 5EC 02-21 16:10 → E/R 20:27 → 5EC 02-18 19:40
PROVIDERS: Internal Medicine
DX: G45.9 Transient cerebral ischemic attack, unspecified (principal); G93.40 Encephalopathy, unspecified; E11.42 Type 2 diabetes mellitus with diabetic polyneuropathy; E78.5 Hyperlipidemia, unspecified; F29 Unspecified psychosis not due to a substance or known physiological condition; G40.909 Epilepsy, unspecified, not intractable, without status epilepticus; I10 Essential (primary) hypertension; N40.0 Benign prostatic hyperplasia without lower urinary tract symptoms; R41.82 Altered mental status, unspecified; R47.02 Dysphasia; Z86.73 Personal history of transient ischemic attack (TIA), and cerebral infarction without residual deficits; Z87.891 Personal history of nicotine dependence; Z79.84 Long term (current) use of oral hypoglycemic drugs; Z79.02 Long term (current) use of antithrombotics/antiplatelets
CPT/HCPCS: 36415; 70450; 70546; 70551; 71045; 80048; 80053; 80061; 80307; 81001; 82140; 82607; 82962; 83036; 84443; 84484; 85025; 85610; 85651; 85730; 86592; 92526; 92610; 93005; 97110; 97116; 97162; 97165; 97530; 97535; 99285-25; G0378

== ENCOUNTER 2019-02-26 22:19 | Inpatient (IN) | payer OTHER ==
[2019-02-26] MEDS: MELATONIN 3 MG TABLET PO (23:00)
[2019-02-26] MEDS: QUETIAPINE 25 MG TAB PO (23:00)
[2019-02-26] MEDS: ATORVASTATIN 80 MG TAB PO (23:00)
[2019-02-26] MEDS: TAMSULOSIN (SR) 0.4 MG CAP PO (23:00)
[2019-02-26] MEDS ORDERED: DEXTROSE 50% 50 ML SYRINGE IV ×2 (23:30)
[2019-02-26] MEDS ORDERED: NACL 0.9% 3 ML SYG IV (23:30)
[2019-02-26] MEDS ORDERED: GLUCAGON 1 MG INJ IM (23:30)
[2019-02-26] MEDS ORDERED: GLUCOSE GEL 15 GRAM TUBE PO ×2 (23:30)
[2019-02-26] MEDS ORDERED: morphine 2 MG INJ IV (23:30)
[2019-02-26] MEDS ORDERED: ONDANSETRON 4 MG INJ IV (23:30)
[2019-02-26] MEDS ORDERED: GLUCOSE GEL 15 GRAM TUBE BUCCAL (23:30)
[2019-02-26] MEDS: LORAZEPAM 2 MG INJ IV (23:44)
[2019-02-27] MEDS ORDERED: MAGNESIUM HYDROXIDE 30ML CUP PO (00:30)
[2019-02-27] MEDS ORDERED: BISACODYL 10 MG SUPP PR (00:30)
[2019-02-27] MEDS: QUETIAPINE 25 MG TAB PO ×2 (03:32→20:20)
[2019-02-27 07:20] LABS: ADD MAN DIFF? NO
[2019-02-27 07:22] LABS: BASOPHILS % 0.4 % (0.0-2.0); EOSINOPHILS # 0.3 10^3/ul (0.0-0.5); EOSINOPHILS % 3.1 % (0.0-7.0); HEMATOCRIT 40.2 % (42.0-52.0); LYMPHOCYTES # 2.1 10^3/ul (0.8-2.9); LYMPHOCYTES % 20.9 % (15.0-51.0); MEAN CORPUSCULAR HEMOGLOBIN 32.6 pg (29.0-33.0); MEAN CORPUSCULAR HGB CONC 34.8 g/dl (32.0-37.0); MEAN CORPUSCULAR VOLUME 93.5 fl (82.0-101.0); MEAN PLATELET VOLUME 9.7 fl (7.4-10.4); MONOCYTE # 0.9 10^3/ul (0.3-0.9); MONOCYTES % 9.3 % (0.0-11.0); NEUTROPHIL # 6.5 10^3/ul (1.6-7.5); PLATELET COUNT 257 10^3/UL (140-415); RED CELL DISTRIBUTION WIDTH 12.3 % (11.5-14.5)
[2019-02-27 07:22] LABS: WHITE BLOOD COUNT 9.8 10^3/ul (4.8-10.8)
[2019-02-27] MEDS: Insulin NOVOLOG SS MODERATE Algorithm (SS with meals and bedtime) SC ×4 (07:35→20:32)
[2019-02-27 07:54] LABS: ALANINE AMINOTRANSFERASE 40 IU/L (13-69); ALBUMIN 3.8 g/dl (3.3-4.9); ALBUMIN/GLOBULIN RATIO 1.31; ALKALINE PHOSPHATASE 103 IU/L (42-121); ANION GAP 10 (5-13); ASPARTATE AMINO TRANSFERASE 32 IU/L (15-46); BILIRUBIN,INDIRECT 0.6 mg/dl (0-1.1); BILIRUBIN,TOTAL 0.6 mg/dl (0.2-1.3); BLOOD UREA NITROGEN 15 mg/dl (7-20); CALCIUM 9.4 mg/dl (8.4-10.2); CARBON DIOXIDE 26 mmol/L (21-31); CHLORIDE 105 mmol/L (97-110); CREATININE 0.72 mg/dl (0.61-1.24); Estimated GFR > 60 mL/min (>60); GLUCOSE 126 mg/dl (70-220); POTASSIUM 3.5 mmol/L (3.5-5.1); SODIUM 141 mmol/L (135-144); TOTAL PROTEIN 6.7 g/dl (6.1-8.1)
[2019-02-27] MEDS ORDERED: DOCUSATE SODIUM 100 MG CAP PO (09:00)
[2019-02-27] MEDS: ENOXAPARIN 30 MG/0.3 ML SYG SC (09:31)
[2019-02-27] MEDS: LEVETIRACETAM (100 MG/ML) 5ML CUP PO ×2 (11:52→20:19)
[2019-02-27] MEDS: ASPIRIN 81 MG TAB PO (11:52)
[2019-02-27] MEDS: DOCUSATE SODIUM 10 MG/ML (10ML CUP) PO (11:52)
[2019-02-27] MEDS: CLOPIDOGREL 75 MG TAB PO (11:52)
[2019-02-27] MEDS: ACETAMINOPHEN 325 MG TAB PO (11:52)
[2019-02-27] MEDS: FAMOTIDINE 20 MG TAB PO (11:53)
[2019-02-27] MEDS: LABETALOL 200 MG TAB PO ×2 (11:54→20:19)
[2019-02-27] MEDS: LINAGLIPTIN 5 MG TABLET PO (11:59)
[2019-02-27] MEDS: metFORMIN 500 MG TAB PO ×2 (11:59→18:01)
[2019-02-27 19:51] LABS: ADD UMIC YES; UR ASCORBIC ACID 20 mg/dL (NEGATIVE); UR BACTERIA FEW /HPF (NONE SEEN); UR BILIRUBIN (Dip) NEGATIVE (NEGATIVE); UR BLOOD (Dip) NEGATIVE (NEGATIVE); UR CLARITY SLIGHTLY CLOUDY (CLEAR); UR COLOR YELLOW (YELLOW); UR GLUCOSE (Dip) NEGATIVE (NEGATIVE); UR KETONES (Dip) NEGATIVE (NEGATIVE); UR LEUKOCYTE ESTERASE (Dip) TRACE Leu/ul (NEGATIVE); UR MUCUS MODERATE /HPF (NONE SEEN); UR NITRITE (Dip) NEGATIVE (NEGATIVE); UR RBC 12 /HPF (0-5); UR SPECIFIC GRAVITY (Dip) 1.018 (1.003-1.030); UR TOTAL PROTEIN (Dip) NEGATIVE (NEGATIVE); UR UROBILINOGEN (Dip) 1+ mg/dL (NEGATIVE); UR WBC 14 /HPF (0-5)
[2019-02-27] MEDS: TAMSULOSIN (SR) 0.4 MG CAP PO (20:19)
[2019-02-27] MEDS: ATORVASTATIN 80 MG TAB PO (20:19)
[2019-02-27] MEDS: SENNA TAB PO (20:19)
[2019-02-27] MEDS: MELATONIN 3 MG TABLET PO (20:19)
[2019-02-28] MEDS: ACCUCHECK AT 2AM (Patients on SS coverage) XX (02:00)
[2019-02-28] MEDS: metFORMIN 500 MG TAB PO ×2 (09:36→17:43)
[2019-02-28] MEDS: CLOPIDOGREL 75 MG TAB PO (09:36)
[2019-02-28] MEDS: LEVETIRACETAM (100 MG/ML) 5ML CUP PO ×2 (09:38→21:04)
[2019-02-28] MEDS: Insulin NOVOLOG SS MODERATE Algorithm (SS with meals and bedtime) SC ×4 (09:38→21:00)
[2019-02-28] MEDS: LINAGLIPTIN 5 MG TABLET PO (09:38)
[2019-02-28] MEDS: LABETALOL 200 MG TAB PO ×2 (09:38→21:05)
[2019-02-28] MEDS: FAMOTIDINE 20 MG TAB PO (09:38)
[2019-02-28] MEDS: ASPIRIN 81 MG TAB PO (09:38)
[2019-02-28] MEDS: DOCUSATE SODIUM 10 MG/ML (10ML CUP) PO (09:38)
[2019-02-28] MEDS: ENOXAPARIN 30 MG/0.3 ML SYG SC (09:40)
[2019-02-28] MEDS: CEFTRIAXONE 1 GM/50 ML (PMX) 50 ML IVPB ×2 (12:00→17:45)
[2019-02-28] MEDS: MUPIROCIN 2% 22 GM OINT TOP ×2 (17:43→21:06)
[2019-02-28] MEDS: SENNA TAB PO (21:04)
[2019-02-28] MEDS: TAMSULOSIN (SR) 0.4 MG CAP PO (21:04)
[2019-02-28] MEDS: MELATONIN 3 MG TABLET PO (21:04)
[2019-02-28] MEDS: ATORVASTATIN 80 MG TAB PO (21:04)
[2019-02-28] MEDS: QUETIAPINE 25 MG TAB PO (21:04)
[2019-03-01] MEDS: ACETAMINOPHEN 325 MG TAB PO (00:20)
[2019-03-01] MEDS: ACCUCHECK AT 2AM (Patients on SS coverage) XX (01:34)
[2019-03-01 08:25] LABS: ADD MAN DIFF? NO
[2019-03-01 08:32] LABS: BASOPHILS % 0.3 % (0.0-2.0); EOSINOPHILS # 0.3 10^3/ul (0.0-0.5); EOSINOPHILS % 3.1 % (0.0-7.0); HEMATOCRIT 40.7 % (42.0-52.0); HEMOGLOBIN 13.8 g/dl (14.0-18.0); LYMPHOCYTES # 2.7 10^3/ul (0.8-2.9); LYMPHOCYTES % 27.9 % (15.0-51.0); MEAN CORPUSCULAR HEMOGLOBIN 32.2 pg (29.0-33.0); MEAN CORPUSCULAR HGB CONC 33.9 g/dl (32.0-37.0); MEAN CORPUSCULAR VOLUME 94.9 fl (82.0-101.0); MEAN PLATELET VOLUME 10.3 fl (7.4-10.4); MONOCYTE # 0.9 10^3/ul (0.3-0.9); MONOCYTES % 8.9 % (0.0-11.0); NEUTROPHIL # 5.8 10^3/ul (1.6-7.5); NEUTROPHILS % 59.5 % (39.0-77.0); PLATELET COUNT 257 10^3/UL (140-415); RED BLOOD COUNT 4.29 10^6/ul (4.70-6.10); RED CELL DISTRIBUTION WIDTH 12.9 % (11.5-14.5)
[2019-03-01 08:32] LABS: WHITE BLOOD COUNT 9.7 10^3/ul (4.8-10.8)
[2019-03-01 08:55] LABS: ANION GAP 8 (5-13); BLOOD UREA NITROGEN 16 mg/dl (7-20); CALCIUM 9.1 mg/dl (8.4-10.2); CARBON DIOXIDE 26 mmol/L (21-31); CHLORIDE 107 mmol/L (97-110); CREATININE 0.73 mg/dl (0.61-1.24); Estimated GFR > 60 mL/min (>60); GLUCOSE 99 mg/dl (70-220); POTASSIUM 3.6 mmol/L (3.5-5.1); SODIUM 141 mmol/L (135-144)
[2019-03-01] MEDS: Insulin NOVOLOG SS MODERATE Algorithm (SS with meals and bedtime) SC ×4 (09:06→21:00)
[2019-03-01] MEDS: DOCUSATE SODIUM 10 MG/ML (10ML CUP) PO (09:07)
[2019-03-01] MEDS: LEVETIRACETAM (100 MG/ML) 5ML CUP PO ×2 (09:08→20:49)
[2019-03-01] MEDS: LINAGLIPTIN 5 MG TABLET PO (09:09)
[2019-03-01] MEDS: metFORMIN 500 MG TAB PO ×2 (09:09→18:03)
[2019-03-01] MEDS: FAMOTIDINE 20 MG TAB PO (09:10)
[2019-03-01] MEDS: ASPIRIN 81 MG TAB PO (09:10)
[2019-03-01] MEDS: CLOPIDOGREL 75 MG TAB PO (09:10)
[2019-03-01] MEDS: LABETALOL 200 MG TAB PO ×2 (09:13→20:49)
[2019-03-01] MEDS: MUPIROCIN 2% 22 GM OINT TOP ×2 (09:17→21:03)
[2019-03-01] MEDS: ENOXAPARIN 30 MG/0.3 ML SYG SC (09:23)
[2019-03-01] MEDS: CEFTRIAXONE 1 GM/50 ML (PMX) 50 ML IVPB (14:32)
[2019-03-01] MEDS: QUETIAPINE 25 MG TAB PO (20:49)
[2019-03-01] MEDS: SENNA TAB PO (20:49)
[2019-03-01] MEDS: TAMSULOSIN (SR) 0.4 MG CAP PO (20:49)
[2019-03-01] MEDS: ATORVASTATIN 80 MG TAB PO (20:49)
[2019-03-01] MEDS: MELATONIN 3 MG TABLET PO (20:50)
[2019-03-02] MEDS: ACCUCHECK AT 2AM (Patients on SS coverage) XX (02:00)
[2019-03-02] MEDS: Insulin NOVOLOG SS MODERATE Algorithm (SS with meals and bedtime) SC ×4 (07:35→20:58)
[2019-03-02] MEDS: LEVETIRACETAM (100 MG/ML) 5ML CUP PO ×2 (08:39→20:34)
[2019-03-02] MEDS: DOCUSATE SODIUM 10 MG/ML (10ML CUP) PO (08:39)
[2019-03-02] MEDS: FAMOTIDINE 20 MG TAB PO (08:40)
[2019-03-02] MEDS: LINAGLIPTIN 5 MG TABLET PO (08:40)
[2019-03-02] MEDS: ASPIRIN 81 MG TAB PO (08:40)
[2019-03-02] MEDS: CLOPIDOGREL 75 MG TAB PO (08:40)
[2019-03-02] MEDS: LABETALOL 200 MG TAB PO ×2 (08:40→20:41)
[2019-03-02] MEDS: metFORMIN 500 MG TAB PO ×2 (08:40→17:24)
[2019-03-02] MEDS: MUPIROCIN 2% 22 GM OINT TOP ×2 (08:41→20:58)
[2019-03-02] MEDS: ENOXAPARIN 30 MG/0.3 ML SYG SC (08:53)
[2019-03-02] MEDS: CEFTRIAXONE 1 GM/50 ML (PMX) 50 ML IVPB (12:00)
[2019-03-02] MEDS: TAMSULOSIN (SR) 0.4 MG CAP PO (20:33)
[2019-03-02] MEDS: ATORVASTATIN 80 MG TAB PO (20:33)
[2019-03-02] MEDS: QUETIAPINE 25 MG TAB PO (20:33)
[2019-03-02] MEDS: MELATONIN 3 MG TABLET PO (20:34)
[2019-03-02] MEDS: SENNA TAB PO (20:57)
[2019-03-03] MEDS: ACCUCHECK AT 2AM (Patients on SS coverage) XX (02:00)
[2019-03-03] MEDS: Insulin NOVOLOG SS MODERATE Algorithm (SS with meals and bedtime) SC ×4 (07:31→21:00)
[2019-03-03] MEDS: metFORMIN 500 MG TAB PO ×2 (07:32→17:12)
[2019-03-03] MEDS: LINAGLIPTIN 5 MG TABLET PO (07:32)
[2019-03-03] MEDS: FAMOTIDINE 20 MG TAB PO (08:24)
[2019-03-03] MEDS: CLOPIDOGREL 75 MG TAB PO (08:24)
[2019-03-03] MEDS: ASPIRIN 81 MG TAB PO (08:24)
[2019-03-03] MEDS: LABETALOL 200 MG TAB PO ×2 (08:25→21:00)
[2019-03-03] MEDS: MUPIROCIN 2% 22 GM OINT TOP ×2 (08:26→21:13)
[2019-03-03] MEDS: LEVETIRACETAM (100 MG/ML) 5ML CUP PO ×2 (08:26→21:00)
[2019-03-03] MEDS: DOCUSATE SODIUM 10 MG/ML (10ML CUP) PO (08:26)
[2019-03-03] MEDS: ENOXAPARIN 30 MG/0.3 ML SYG SC (08:32)
[2019-03-03] MEDS: TAMSULOSIN (SR) 0.4 MG CAP PO (20:59)
[2019-03-03] MEDS: ATORVASTATIN 80 MG TAB PO (20:59)
[2019-03-03] MEDS: QUETIAPINE 25 MG TAB PO (20:59)
[2019-03-03] MEDS: SENNA TAB PO (20:59)
[2019-03-03] MEDS: MELATONIN 3 MG TABLET PO (21:11)
[2019-03-04] MEDS: ACCUCHECK AT 2AM (Patients on SS coverage) XX (02:00)
[2019-03-04] MEDS: Insulin NOVOLOG SS MODERATE Algorithm (SS with meals and bedtime) SC ×4 (07:35→21:00)
[2019-03-04] MEDS: metFORMIN 500 MG TAB PO ×2 (07:36→17:33)
[2019-03-04] MEDS: CLOPIDOGREL 75 MG TAB PO (09:22)
[2019-03-04] MEDS: LINAGLIPTIN 5 MG TABLET PO (09:22)
[2019-03-04] MEDS: ASPIRIN 81 MG TAB PO (09:24)
[2019-03-04] MEDS: DOCUSATE SODIUM 10 MG/ML (10ML CUP) PO (09:24)
[2019-03-04] MEDS: LEVETIRACETAM (100 MG/ML) 5ML CUP PO ×2 (09:24→22:09)
[2019-03-04] MEDS: LABETALOL 200 MG TAB PO ×2 (09:24→22:11)
[2019-03-04] MEDS: FAMOTIDINE 20 MG TAB PO (09:25)
[2019-03-04] MEDS: ENOXAPARIN 30 MG/0.3 ML SYG SC (09:40)
[2019-03-04] MEDS: MUPIROCIN 2% 22 GM OINT TOP ×2 (09:41→22:11)
[2019-03-04] MEDS: SENNA TAB PO (22:09)
[2019-03-04] MEDS: MELATONIN 3 MG TABLET PO (22:10)
[2019-03-04] MEDS: QUETIAPINE 25 MG TAB PO (22:10)
[2019-03-04] MEDS: ATORVASTATIN 80 MG TAB PO (22:10)
[2019-03-04] MEDS: TAMSULOSIN (SR) 0.4 MG CAP PO (22:10)
[2019-03-05] MEDS: ACCUCHECK AT 2AM (Patients on SS coverage) XX (02:00)
[2019-03-05] MEDS: Insulin NOVOLOG SS MODERATE Algorithm (SS with meals and bedtime) SC ×4 (07:35→20:55)
[2019-03-05 07:43] LABS: ADD UMIC NO; UR ASCORBIC ACID NEGATIVE (NEGATIVE); UR BILIRUBIN (Dip) NEGATIVE (NEGATIVE); UR BLOOD (Dip) NEGATIVE (NEGATIVE); UR CLARITY CLEAR (CLEAR); UR COLOR YELLOW (YELLOW); UR GLUCOSE (Dip) NEGATIVE (NEGATIVE); UR KETONES (Dip) NEGATIVE (NEGATIVE); UR LEUKOCYTE ESTERASE (Dip) NEGATIVE Leu/ul (NEGATIVE); UR NITRITE (Dip) NEGATIVE (NEGATIVE); UR SPECIFIC GRAVITY (Dip) 1.009 (1.003-1.030); UR TOTAL PROTEIN (Dip) NEGATIVE (NEGATIVE); UR UROBILINOGEN (Dip) NEGATIVE (NEGATIVE)
[2019-03-05] MEDS: metFORMIN 500 MG TAB PO ×2 (08:03→17:25)
[2019-03-05] MEDS: LINAGLIPTIN 5 MG TABLET PO (08:04)
[2019-03-05] MEDS: CLOPIDOGREL 75 MG TAB PO (09:18)
[2019-03-05] MEDS: LEVETIRACETAM (100 MG/ML) 5ML CUP PO ×2 (09:19→20:52)
[2019-03-05] MEDS: DOCUSATE SODIUM 10 MG/ML (10ML CUP) PO (09:19)
[2019-03-05] MEDS: FAMOTIDINE 20 MG TAB PO (09:19)
[2019-03-05] MEDS: ASPIRIN 81 MG TAB PO (09:19)
[2019-03-05] MEDS: LABETALOL 200 MG TAB PO ×2 (09:19→20:52)
[2019-03-05] MEDS: ENOXAPARIN 30 MG/0.3 ML SYG SC (09:28)
[2019-03-05] MEDS: MUPIROCIN 2% 22 GM OINT TOP ×2 (11:58→20:52)
[2019-03-05] MEDS: QUETIAPINE 25 MG TAB PO (20:51)
[2019-03-05] MEDS: ATORVASTATIN 80 MG TAB PO (20:51)
[2019-03-05] MEDS: MELATONIN 3 MG TABLET PO (20:52)
[2019-03-05] MEDS: SENNA TAB PO (20:52)
[2019-03-05] MEDS: TAMSULOSIN (SR) 0.4 MG CAP PO (20:52)
[2019-03-06] MEDS: ACCUCHECK AT 2AM (Patients on SS coverage) XX (02:00)
[2019-03-06] MEDS: Insulin NOVOLOG SS MODERATE Algorithm (SS with meals and bedtime) SC ×4 (07:35→20:48)
[2019-03-06] MEDS: LEVETIRACETAM (100 MG/ML) 5ML CUP PO ×2 (08:54→20:46)
[2019-03-06] MEDS: ENOXAPARIN 30 MG/0.3 ML SYG SC (08:54)
[2019-03-06] MEDS: DOCUSATE SODIUM 10 MG/ML (10ML CUP) PO (08:54)
[2019-03-06] MEDS: FAMOTIDINE 20 MG TAB PO (08:55)
[2019-03-06] MEDS: ASPIRIN 81 MG TAB PO (08:55)
[2019-03-06] MEDS: CLOPIDOGREL 75 MG TAB PO (08:55)
[2019-03-06] MEDS: metFORMIN 500 MG TAB PO ×2 (08:56→17:31)
[2019-03-06] MEDS: LINAGLIPTIN 5 MG TABLET PO (08:56)
[2019-03-06] MEDS: LABETALOL 200 MG TAB PO ×2 (08:57→20:48)
[2019-03-06] MEDS: MUPIROCIN 2% 22 GM OINT TOP ×2 (08:58→20:47)
[2019-03-06] MEDS: ATORVASTATIN 80 MG TAB PO (20:45)
[2019-03-06] MEDS: TAMSULOSIN (SR) 0.4 MG CAP PO (20:45)
[2019-03-06] MEDS: MELATONIN 3 MG TABLET PO (20:45)
[2019-03-06] MEDS: SENNA TAB PO (20:45)
[2019-03-06] MEDS: QUETIAPINE 25 MG TAB PO (20:46)
[2019-03-07] MEDS: ACCUCHECK AT 2AM (Patients on SS coverage) XX (02:00)
[2019-03-07] MEDS: Insulin NOVOLOG SS MODERATE Algorithm (SS with meals and bedtime) SC ×4 (07:35→21:00)
[2019-03-07] MEDS: LINAGLIPTIN 5 MG TABLET PO (08:01)
[2019-03-07] MEDS: FAMOTIDINE 20 MG TAB PO (08:01)
[2019-03-07] MEDS: CLOPIDOGREL 75 MG TAB PO (08:01)
[2019-03-07] MEDS: ASPIRIN 81 MG TAB PO (08:02)
[2019-03-07] MEDS: LEVETIRACETAM (100 MG/ML) 5ML CUP PO ×2 (08:03→21:10)
[2019-03-07] MEDS: metFORMIN 500 MG TAB PO ×2 (08:03→17:35)
[2019-03-07] MEDS: DOCUSATE SODIUM 10 MG/ML (10ML CUP) PO (08:03)
[2019-03-07] MEDS: LABETALOL 200 MG TAB PO ×2 (08:05→21:10)
[2019-03-07] MEDS: ENOXAPARIN 30 MG/0.3 ML SYG SC (08:15)
[2019-03-07] MEDS: SENNA TAB PO (21:09)
[2019-03-07] MEDS: TAMSULOSIN (SR) 0.4 MG CAP PO (21:09)
[2019-03-07] MEDS: QUETIAPINE 25 MG TAB PO (21:10)
[2019-03-07] MEDS: ATORVASTATIN 80 MG TAB PO (21:10)
[2019-03-07] MEDS: MELATONIN 3 MG TABLET PO (21:10)
[2019-03-08] MEDS: ACCUCHECK AT 2AM (Patients on SS coverage) XX (02:00)
[2019-03-08] MEDS: Insulin NOVOLOG SS MODERATE Algorithm (SS with meals and bedtime) SC ×4 (07:35→20:35)
[2019-03-08] MEDS: metFORMIN 500 MG TAB PO ×2 (08:12→17:25)
[2019-03-08] MEDS: LINAGLIPTIN 5 MG TABLET PO (08:13)
[2019-03-08] MEDS: CLOPIDOGREL 75 MG TAB PO (08:14)
[2019-03-08] MEDS: ASPIRIN 81 MG TAB PO (08:14)
[2019-03-08] MEDS: LEVETIRACETAM (100 MG/ML) 5ML CUP PO ×2 (08:14→20:35)
[2019-03-08] MEDS: DOCUSATE SODIUM 10 MG/ML (10ML CUP) PO (08:14)
[2019-03-08] MEDS: FAMOTIDINE 20 MG TAB PO (08:14)
[2019-03-08] MEDS: LABETALOL 200 MG TAB PO ×2 (08:16→20:35)
[2019-03-08] MEDS: ENOXAPARIN 30 MG/0.3 ML SYG SC (08:22)
[2019-03-08] MEDS: ACETAMINOPHEN 325 MG TAB PO (10:03)
[2019-03-08] MEDS: TAMSULOSIN (SR) 0.4 MG CAP PO (20:34)
[2019-03-08] MEDS: MELATONIN 3 MG TABLET PO (20:34)
[2019-03-08] MEDS: ATORVASTATIN 80 MG TAB PO (20:34)
[2019-03-08] MEDS: SENNA TAB PO (20:35)
[2019-03-08] MEDS: QUETIAPINE 25 MG TAB PO (20:35)
[2019-03-09] MEDS: ACCUCHECK AT 2AM (Patients on SS coverage) XX (02:00)
[2019-03-09] MEDS: Insulin NOVOLOG SS MODERATE Algorithm (SS with meals and bedtime) SC ×4 (07:35→21:00)
[2019-03-09] MEDS: metFORMIN 500 MG TAB PO ×2 (08:05→17:50)
[2019-03-09] MEDS: LINAGLIPTIN 5 MG TABLET PO (08:06)
[2019-03-09] MEDS: DOCUSATE SODIUM 10 MG/ML (10ML CUP) PO (08:41)
[2019-03-09] MEDS: LEVETIRACETAM (100 MG/ML) 5ML CUP PO ×2 (08:41→21:43)
[2019-03-09] MEDS: LABETALOL 200 MG TAB PO ×2 (08:42→21:44)
[2019-03-09] MEDS: FAMOTIDINE 20 MG TAB PO (08:42)
[2019-03-09] MEDS: ASPIRIN 81 MG TAB PO (08:42)
[2019-03-09] MEDS: CLOPIDOGREL 75 MG TAB PO (08:42)
[2019-03-09] MEDS: ENOXAPARIN 30 MG/0.3 ML SYG SC (08:48)
[2019-03-09] MEDS: ATORVASTATIN 80 MG TAB PO (21:43)
[2019-03-09] MEDS: SENNA TAB PO (21:43)
[2019-03-09] MEDS: TAMSULOSIN (SR) 0.4 MG CAP PO (21:43)
[2019-03-09] MEDS: QUETIAPINE 25 MG TAB PO (21:43)
[2019-03-09] MEDS: MELATONIN 3 MG TABLET PO (21:43)
[2019-03-10] MEDS: ACCUCHECK AT 2AM (Patients on SS coverage) XX (02:00)
[2019-03-10] MEDS: Insulin NOVOLOG SS MODERATE Algorithm (SS with meals and bedtime) SC ×4 (07:35→21:00)
[2019-03-10] MEDS: DOCUSATE SODIUM 10 MG/ML (10ML CUP) PO (08:29)
[2019-03-10] MEDS: metFORMIN 500 MG TAB PO ×2 (08:29→17:10)
[2019-03-10] MEDS: LEVETIRACETAM (100 MG/ML) 5ML CUP PO ×2 (08:29→21:21)
[2019-03-10] MEDS: LINAGLIPTIN 5 MG TABLET PO (08:30)
[2019-03-10] MEDS: CLOPIDOGREL 75 MG TAB PO (08:30)
[2019-03-10] MEDS: FAMOTIDINE 20 MG TAB PO (08:30)
[2019-03-10] MEDS: ASPIRIN 81 MG TAB PO (08:30)
[2019-03-10] MEDS: LABETALOL 200 MG TAB PO ×2 (08:31→21:22)
[2019-03-10] MEDS: ENOXAPARIN 30 MG/0.3 ML SYG SC (08:32)
[2019-03-10] MEDS: MELATONIN 3 MG TABLET PO (21:21)
[2019-03-10] MEDS: ATORVASTATIN 80 MG TAB PO (21:21)
[2019-03-10] MEDS: QUETIAPINE 25 MG TAB PO (21:21)
[2019-03-10] MEDS: SENNA TAB PO (21:22)
[2019-03-10] MEDS: TAMSULOSIN (SR) 0.4 MG CAP PO (21:23)
[2019-03-11] MEDS: ACCUCHECK AT 2AM (Patients on SS coverage) XX (02:00)
[2019-03-11] MEDS: Insulin NOVOLOG SS MODERATE Algorithm (SS with meals and bedtime) SC ×4 (09:24→20:59)
[2019-03-11] MEDS: DOCUSATE SODIUM 10 MG/ML (10ML CUP) PO (09:25)
[2019-03-11] MEDS: LEVETIRACETAM (100 MG/ML) 5ML CUP PO ×2 (09:25→20:58)
[2019-03-11] MEDS: ASPIRIN 81 MG TAB PO (09:25)
[2019-03-11] MEDS: metFORMIN 500 MG TAB PO ×2 (09:26→17:42)
[2019-03-11] MEDS: LINAGLIPTIN 5 MG TABLET PO (09:26)
[2019-03-11] MEDS: LABETALOL 200 MG TAB PO ×2 (09:27→21:01)
[2019-03-11] MEDS: FAMOTIDINE 20 MG TAB PO (09:27)
[2019-03-11] MEDS: CLOPIDOGREL 75 MG TAB PO (09:27)
[2019-03-11] MEDS: ENOXAPARIN 30 MG/0.3 ML SYG SC (09:27)
[2019-03-11] MEDS: QUETIAPINE 25 MG TAB PO (20:58)
[2019-03-11] MEDS: SENNA TAB PO (20:58)
[2019-03-11] MEDS: ATORVASTATIN 80 MG TAB PO (20:58)
[2019-03-11] MEDS: TAMSULOSIN (SR) 0.4 MG CAP PO (20:58)
[2019-03-11] MEDS: MELATONIN 3 MG TABLET PO (20:58)
[2019-03-12] MEDS: ACCUCHECK AT 2AM (Patients on SS coverage) XX (02:00)
[2019-03-12] MEDS: Insulin NOVOLOG SS MODERATE Algorithm (SS with meals and bedtime) SC (07:35)
[2019-03-12] MEDS: ASPIRIN 81 MG TAB PO (08:56)
[2019-03-12] MEDS: metFORMIN 500 MG TAB PO (08:56)
[2019-03-12] MEDS: DOCUSATE SODIUM 10 MG/ML (10ML CUP) PO (08:56)
[2019-03-12] MEDS: LEVETIRACETAM (100 MG/ML) 5ML CUP PO (08:56)
[2019-03-12] MEDS: LINAGLIPTIN 5 MG TABLET PO (08:57)
[2019-03-12] MEDS: ACETAMINOPHEN 325 MG TAB PO (08:57)
[2019-03-12] MEDS: LABETALOL 200 MG TAB PO (08:58)
[2019-03-12] MEDS: CLOPIDOGREL 75 MG TAB PO (08:58)
[2019-03-12] MEDS: FAMOTIDINE 20 MG TAB PO (08:58)
[2019-03-12] MEDS: ENOXAPARIN 30 MG/0.3 ML SYG SC (09:02)
== END 2019-03-12 11:43 | disposition home health service (06) | DRG 92 ==
LOC: VRC 22:19
PROVIDERS: Internal Medicine
PROC: F07Z5ZZ Bed Mobility Treatment (ICD-10-PCS; principal; 2019-02-26)
PROC: F08Z2ZZ Grooming/Personal Hygiene Treatment (ICD-10-PCS; 2019-02-26)
PROC: F06Z6ZZ Communicative/Cognitive Integration Skills Treatment (ICD-10-PCS; 2019-02-26)
DX: G92 Toxic encephalopathy (principal); N39.0 Urinary tract infection, site not specified; G45.9 Transient cerebral ischemic attack, unspecified; Z86.73 Personal history of transient ischemic attack (TIA), and cerebral infarction without residual deficits; G40.909 Epilepsy, unspecified, not intractable, without status epilepticus; R13.10 Dysphagia, unspecified; I10 Essential (primary) hypertension; E11.9 Type 2 diabetes mellitus without complications; Z79.82 Long term (current) use of aspirin; Z79.4 Long term (current) use of insulin
CPT/HCPCS: 80048; 80053; 81001; 81003; 82962; 85025; 87081; 87086; 92507; 92523; 92526; 92610; 97110; 97112; 97116; 97163; 97167; 97530; 97535; 97542